=== PATIENT | female | born 2005 | race Caucasian/White ===

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

== ENCOUNTER 2024-10-22 07:59 | Emergency (ER) | payer MEDICAID, SELFPAY ==
[2024-10-22 08:00] VITALS: BP 120/77; PULSE 97; RESP 16; TEMP 36.7; O2SAT 99; BMI 33.8
[2024-10-22] MEDS: Ondansetron 4 MG/2 ML Vial IV (08:35)
[2024-10-22] MEDS: 0.9% Normal Saline (1000mL) 1,000 ML 200 ML IV (08:35)
[2024-10-22] MEDS: Morphine 4 MG/ML Syringe IV (08:36)
[2024-10-22] MEDS: Ketorolac 30 MG/ML Syringe IV (08:36)
--- NOTE | 2024-10-22 08:42 | ED.VIS.GI ---
HPI HPI - GI History of Present Illness Chief Complaint: Abd Pain Informant: patient and spouse/S.O. Narrative Narrative: 19-year-old female presenting with the third day of abdominal pain and vomiting. She states the abdominal pain started first and it was periumbilical, couple hours later she started having nausea and vomiting nonbilious nonbloody, she has been having normal bowel movements, normal urination, but states now the pain is moved to the right lower quadrant. She has had a poor appetite and p.o. intake, she has not had any fluids since last night but has been drinking fluids otherwise. No fevers or chills that she knows of. No known sick contacts. No history of any surgeries in her abdomen. She has irregular menstrual cycles, her last one was 1 or 2 months ago, she states that is not unusual for her, but given the symptoms they did a home test last night and it was negative. PFSH PFSH Medical History no medical history no medical history Home Medications ?Medication ?Instructions ?Recorded ?Last Taken ?Type ciprofloxacin HCl 500 mg tablet 500 mg PO BID #14 TABLETS 10/22/24 Unknown Rx promethazine 25 mg tablet 25 mg PO Q6H PRN PRN Nausea #10 10/22/24 Unknown Rx TABLETS Allergy/AdvReac Type Severity Reaction Status Date / Time No Known Allergies Allergy Verified 10/22/24 08:25 Surgical History (Updated 10/22/24 @ 08:[address] Christian Amaya MD) H/O left knee surgery H/O adenoidectomy Hx of tonsillectomy Social History Smoking Status: Current every day smoker tobacco type: e-cigarettes ROS ROS ED Constitutional Constitutional ED: Reports anorexia; Denies chills or fever(s) Eyes Eyes: Denies change in vision or diplopia ENT ENT ED: Denies rhinorrhea or sore throat Cardiovascular Cardiovascular: Denies chest pain or palpitations Respiratory/Chest Respiratory/Chest: Denies cough or dyspnea Gastrointestinal Gastrointestinal: Reports abdominal pain, nausea and vomiting; Denies diarrhea or melena Genitourinary Genitourinary ED: Denies dysuria or hematuria Musculoskeletal Musculoskeletal: Denies back pain or neck pain Integumentary Denies abscess or rash Neurologic Neurologic: Denies headache(s), paresthesias or weakness Psychiatric Psychiatric: Denies anxiety or suicidal thoughts EXAM Physical Exam Const Vital Signs: 10/22/24 08:00 10/22/24 10:00 Temperature 98.1 F Temperature Source Oral Pulse Rate 97 77 Respiratory Rate 16 16 Blood Pressure 120/77 96/60 Blood Pressure Mean 91 72 Pulse Ox 99 97 Oxygen Delivery Method Room Air Room Air Positive well nourished and well developed General Appearance ED: well developed and NAD HEENT Reports moist mucous membranes normocephalic and atraumatic Eyes PERRL and EOMs intact bilaterally Neck full ROM and supple Resp normal respiratory effort and clear to auscultation bilaterally Cardio regular rate, regular rhythm and no murmurs GI non-distended GI Narrative: Tender throughout the right lower quadrant with the maximal area of tenderness being at McBurney's point. Positive Rovsing, negative obturator, positive psoas. No rebound tenderness. Auscultation: normoactive bowel sounds Palpation: soft Back/Spine no CVA tenderness General Back: other FROM Extremity normal to inspection General Extremety ED: Negative for edema, pulses abnormal or tenderness General Extremity: Negative for edema or pulses abnormal Neuro oriented x3, CN's II-XII intact bilaterally and no sensory deficits noted Sensorium / Orientation: awake and alert Motor Exam: strength 5/5 throughout Psych mental status grossly normal and thought process normal Skin no rashes or lesions noted and no wounds MDM MDM MDM Narrative Medical decision making narrative: The history and exam are concerning for acute appendicitis. Ectopic and mesenteric adenitis and other GI issues such as terminal ileitis or other functional problems are all in the differential, but at this time a , basic labs, and a CT are indicated. In the meantime she was treated with IV fluids, Zofran, Toradol, morphine. These medications really help the patient did well remained stable. Labs are noted fairly unremarkable, urine showing signs of infection, and the CT shows normal appendix, signs of cystitis and ureteritis on the right, which is likely explaining her pain in context. I reviewed the images and report I agree with. Right is negative ruling out ectopic. I discussed these findings with Dr. Up, who agrees with treating her like an upper urinary tract infection and advises Cipro as an outpatient, I sent a culture and gave her Rocephin here, and she will follow-up with her as an outpatient. In speaking with the patient about this, she states she was treated for a urinary tract infection 2 weeks ago. She states she had some mild discomfort after urinating, and she did not seek care for but her grandmother gave her some pills to take which sounded like Azo, they made her urine orange, and she took nothing else. This was about 2 weeks ago. She states she did not have any urinary symptoms last couple days, but she did take an Azo about 24 hours ago, which was her last dose, because she was not sure if this was related or not. Initially when asked about urinary symptoms she said that she had none, and all of this came about after the workup. Therefore my suspicion is that she had cystitis that she did not treat and it is now becoming an upper tract infection. She is tolerating oral now, her is negative, and she is not septic so outpatient treatment appropriate. Lab Data Attestation: I reviewed the patient's lab results. Labs: Laboratory Results - last 24 hr 10/22/24 10/22/24 08:42 09:37 WBC 9.1 RBC 4.71 Hgb 14.0 Hct 41.1 MCV 87.3 MCH 29.7 MCHC 34.1 RDW Std Deviation 39.8 RDW Coeff of Wanda 12.7 Plt Count 245 MPV 8.9 Immature Gran % (Auto) 0.400 Neut % (Auto) 75.3 H Lymph % (Auto) 16.2 L [place] % (Auto) 7.4 Eos % (Auto) 0.6 Baso % (Auto) 0.1 Absolute Neuts (auto) 6.8 Absolute Lymphs (auto) 1.47 Nucleated RBC % 0 Sodium 139 Potassium 3.7 Chloride 103 Carbon Dioxide 24.7 Anion Gap 11 BUN 14 Creatinine 0.75 Estim Creat Clear Calc 115.62 Est GFR (MDRD) Non-Af 116 BUN/Creatinine Ratio 18.4 Glucose 98 Calcium 9.3 Total Bilirubin 0.53 AST 20 ALT 31 Alkaline Phosphatase 77 Total Protein 7.9 Albumin 4.3 Globulin 3.6 Albumin/Globulin Ratio 1.2 Serum , Qual NEGATIVE Urine Color Yellow Urine Clarity Cloudy Urine pH 6.0 Ur Specific [place] 1.015 Urine Protein TNP Urine Glucose (UA) Normal Urine Ketones Negative Urine Occult Blood 250 H Urine Nitrite Positive H Urine Bilirubin Negative Urine Urobilinogen Normal Ur Leukocyte Esterase 500 H Urine RBC 10-25 SEEN Urine WBC >100 SEEN Ur Squamous Epith Cells 10-25 SEEN Urine Bacteria 1+ Urine Mucus 0 SEEN U Random Total Protein 73.7 H Radiography Diagnostic Testing: Clinical Impression(s) from Imaging Studies Abdomen/Pelvis CT 10/22/24 10:02 IMPRESSION: Thickening and hyperenhancement of the right renal collecting system, ureter and bladder, compatible with cystitis and right ureteritis. No renal abscess visualized. Reading Location: [facility] Management Discussion w/another healthcare provider: Medical Case Manager (Urology Dr. Up) Discharge Plan Triage Chief Complaint: Abd Pain ED Provider: Christian Amaya Dx/Rx/DC Orders Clinical Impression: Ureteritis, Cystitis, Abdominal pain, RLQ Instructions: ED Pyelonephritis, Female (Adult) Prescriptions: New ciprofloxacin HCl 500 mg tablet 500 mg PO BID Qty: 14 0RF promethazine 25 mg tablet 25 mg PO Q6H PRN PRN (Reason: Nausea) Qty: 10 0RF Primary Care Provider: Care Physician,No Primary Referrals: Meli Up MD [Med Staff - Active Staff] - As soon as possible Print Language: Niuean Disposition Disposition: Home, Self Care
[2024-10-22 08:50] LABS: Absolute Lymphocyte Count 1.47 X10^3/uL (0.83-4.51); Absolute Neutrophil Count 6.8 X10^3/uL (2.0-7.7); Basophil# 0.01 X10^3/uL; Basophil% 0.1 % (0-1); Eosinophil# 0.05 X10^3/uL; Eosinophils% 0.6 % (0-5); Hematocrit 41.1 % (37-47); Lymphocyte # 1.47 X10^3/ul (0.83-4.51); Lymphocyte % 16.2 % (19-41); Mean Corp Hgb Conc 34.1 g/dL (32-36); Mean Corpuscular Hgb 29.7 pg (27.0-32.0); Mean Corpuscular Volume 87.3 fL (81-99); Mean Platelet Vol. 8.9 fl (6.2-12.0); Monocyte# 0.67 X10^3/uL; Monocyte% 7.4 % (0-10); NRBC Flagged by Analyzer 0 % (0-5); Neutrophil # 6.81 X10^3/uL (2.7-7.7); Neutrophil % 75.3 % (47-70); Platelet Count 245 K/mm3 (150-450); RBC Distribution Width CV 12.7 % (11.6-14.6); RBC Distribution Width SD 39.8 fl (35.1-43.9); Red Blood Count 4.71 M/mm3 (4.2-5.4); White Blood Count 9.1 K/mm3 (4.4-11.0)
[2024-10-22 09:40] LABS: Internal QC Validated? YES +Cl - CLEAR BKGD; Pregnancy, Serum, hCG Quali. NEGATIVE Negative
[2024-10-22 09:45] LABS: ALB/GLOB Ratio 1.2 RATIO (0.9-2.4); AST(SGOT) 20 U/L (<=31); Alanine Aminotransfer ALT/SGPT 31 U/L (<=34); Albumin, Serum 4.3 g/dL (3.5-5.0); Alkaline Phosphatase 77 U/L (35-104); Anion Gap 11 (5-15); BUN 14 mg/dL (4-19); BUN/Creat Ratio 18.4 RATIO (10-20); Calcium,Total 9.3 mg/dL (7.6-11.0); Carbon Dioxide 24.7 mmol/L (21.0-32.0); Chloride 103 mmol/L (98-108); Creatinine, Serum 0.75 mg/dL (0.70-1.20); EST Glomerular Filtration Rate 116 (>60); Estimated Creatinine Clearance 115.62 ml/min (50-250); Globulin 3.6 g/dL (2.2-4.2); Glucose 98 mg/dL (70-99); Potassium 3.7 mmol/L (3.3-5.1); Protein, Total 7.9 g/dL (5.9-8.4); Sodium Level 139 mmol/L (133-145); Total Bilirubin 0.53 mg/dL (0.00-1.30)
[2024-10-22 09:46] LABS: Mucous, Urine 0 SEEN /hpf (<or=2+)
[2024-10-22 09:59] LABS: Color, Urine Yellow (Yellow); Glucose, Dipstick Normal (Normal); Ketone-Dipstick Negative (Negative); Leukocyte Esterase-Dipstick 500 /ul (Negative); Nitrite-Dipstick Positive (Negative); Occult Blood-Urine 250 /ul (Negative); Specific Gravity, Urine 1.015 (1.002-1.030); Urine Bilirubin Dipstick Negative (Negative); Urine Clarity Cloudy (Clear); Urine Urobilinogen Normal (Normal)
[2024-10-22 10:00] VITALS: BP 96/60; PULSE 77; RESP 16; O2SAT 97
--- NOTE | 2024-10-22 10:02 | CT_ITS ---
PROCEDURE: ABDOMEN/PELVIS W IV CONT ONLY 10/22/2024 REASON FOR EXAM: RLQ PAIN TECHNIQUE: Abdomen and pelvis CT with intravenous contrast. Coronal and Sagittal reconstruction series were provided. PATIENT PREPARATION: Per protocol ORAL CONTRAST TYPE: None. CONTRAST: Isovue 370 VOLUME: 100 mL One or more dose reduction techniques were used (e.g., Automated exposure control, adjustment of the mA and/or kV according to patient size, use of iterative reconstruction technique. RADIATION DOSE SUMMARY: CTDlvol: 30 mGy DLP: 1200 mGycm COMPARISON: None FINDINGS: Lung bases: The lung bases are clear. The heart is normal in size. Liver: The liver is normal in size without focal hepatic mass. The major portal veins are patent. No biliary ductal dilation. Gallbladder: No radiopaque stones within the gallbladder. Spleen: Normal size. Pancreas: Unremarkable. Adrenals: No adrenal mass. Kidneys: No nephrolithiasis. Hyperenhancement of the right renal collecting system and ureter. Bladder: Minimally distended with diffuse bladder wall thickening and enhancement. Reproductive Organs: The uterus is unremarkable. Right corpus luteum. Bowel: The bowel loops are normal in caliber. No ascites or pneumoperitoneum. Normal appendix. Lymph nodes: No suspicious lymphadenopathy. Vasculature: The abdominal aorta and IVC are normal. Bones: Mild leftward curvature of the lumbar spine. No aggressive osseous lesions. CT/Abdomen/Pelvis W IV Cont ONLY IMPRESSION: Thickening and hyperenhancement of the right renal collecting system, ureter an d bladder, compatible with cystitis and right ureteritis. No renal abscess visualized. Reading Location: [id number]
[2024-10-22 10:11] LABS: White Blood Cells >100 SEEN /hpf (0-5)
[2024-10-22 10:12] LABS: Red Blood Cells-Urine 10-25 SEEN /hpf (0-5)
[2024-10-22 10:13] LABS: Bacteria 1+ /hpf (None Seen); Squamous Epithelial Cells - UA 10-25 SEEN /hpf (5-10)
[2024-10-22 10:36] LABS: Protein, Urine (Random) 73.7 mg/dL (0.0-12.0)
[2024-10-22] MEDS: Ceftriaxone 1 GM/50 ML BAG IV (11:01)
[2024-10-22 11:43] VITALS: BP 93/57; PULSE 78; RESP 16; TEMP 36.5; O2SAT 99
== END 2024-10-22 12:02 | disposition home or self-care (01) ==
PROVIDERS: Emergency Provider Emergency Medicine; Visit Provider Emergency Medicine
DX: R10.31 Right lower quadrant pain (principal); N28.89 Other specified disorders of kidney and ureter; N30.90 Cystitis, unspecified without hematuria; F17.290 Nicotine dependence, other tobacco product, uncomplicated; R11.10 Vomiting, unspecified
CPT/HCPCS: 36415; 74177; 80053; 81001; 84156; 84703; 85025; 87086; 87088; 87186; 96361; 96365; 96375; 99283; Q9967; A4216; J2405

== ENCOUNTER 2025-06-27 10:27 | Emergency (ER) | payer SELFPAY ==
[2025-06-27 10:28] VITALS: BP 132/81; PULSE 98; RESP 16; TEMP 36.8; O2SAT 99; BMI 38.8
--- NOTE | 2025-06-27 10:41 | ED.VIS.GI ---
HPI HPI - GI History of Present Illness Chief Complaint: Abd Pain Informant: patient Abdominal Pain/Flank Pain Onset: Weeks Context: Gradual Onset Timing: Intermittent Quality: Cramping Location: Diffuse Current Severity: Mild Maximum Severity: Mild Worsened by: Nothing Relieved by: Nothing Nausea/Vomiting/Emesis GI Symptom: Positive for Nausea and Vomiting Onset: Weeks Severity: Mild Diarrhea/Melena/Hematochezia GI Symptom: Negative for Diarrhea, Melena or Hematochezia Associated Symptoms Associated Symptoms: Negative for Dysuria, Frequency, Hematuria or Urgency Narrative Narrative: 20-year-old female no past medical or surgical history. No prior abdominal surgeries. States of the last month or so she has had diffuse abdominal cramping. Nausea and vomiting. No diarrhea. No fever. No dysuria. Her menstrual period is late by 1 month. But she has had test at home which have all been negative. States she has had a 10 pound weight gain over the last year no weight loss. Prior similar symptoms: Yes Recent Illness/Hospitalization: No PFSH PFSH Medical History no medical history no medical history Home Medications ?Medication ?Instructions ?Recorded ?Last Taken ?Type ciprofloxacin HCl 500 mg tablet 500 mg PO BID #14 TABLETS 10/22/24 Unknown Rx promethazine 25 mg tablet 25 mg PO Q6H PRN PRN Nausea #10 10/22/24 Unknown Rx TABLETS sulfamethoxazole 800 1 tab PO BID 5 days #10 tabs 06/27/25 Unknown Rx mg-trimethoprim 160 mg tablet (Bactrim DS) Allergy/AdvReac Type Severity Reaction Status Date / Time No Known Allergies Allergy Verified 06/27/25 10:30 Surgical History H/O left knee surgery H/O adenoidectomy Hx of tonsillectomy Social History Smoking Status: Current every day smoker tobacco type: e-cigarettes ROS ROS ED ROS Narrative Nausea and vomiting. Constitutional Constitutional ED: Denies chills or fever(s) ENT ENT ED: Denies ear pain Cardiovascular Cardiovascular: Denies chest pain Respiratory/Chest Respiratory/Chest: Denies cough or dyspnea Gastrointestinal Gastrointestinal: Reports abdominal pain, nausea and vomiting; Denies constipation, diarrhea or melena Genitourinary Genitourinary ED: Denies dysuria or hematuria Musculoskeletal Musculoskeletal: Denies arthralgias Integumentary Denies abscess or Abrasions Neurologic Neurologic: Denies headache(s) Psychiatric Psychiatric: Denies anxiety or depression Endocrine Endocrinology: Denies polydipsia, polyphagia or polyuria Hematologic/Lymphatic Hematologic/Lymphatic: Denies easy bleeding, easy bruising or lymphadenopathy Allergic/Immunologic Allergic/Immunologic ED: Denies mouth swelling, tongue swelling or urticaria EXAM Physical Exam Narrative Exam Narrative: 20-year-old female sitting upright in bed. Vital signs are stable afebrile. Absolutely no distress. Smiling. H EENT exam pupils round react to light. Moist mucous membranes. Neck nontender no lymphadenopathy. Back nontender. Lungs clear to auscultation bilaterally. Heart regular rhythm rate in the 90s no murmur. Chest wall ribs nontender. Abdomen soft, nontender, nondistended, normal bowel sounds without peritoneal signs. No guarding or mass. No distention. No localizing tenderness. Both right upper and right lower quadrants are nontender. Moving all 4 extremities. Nontender no edema normal strength. Neurologically awake alert. Answering questions following commands. Const Vital Signs: 06/27/25 10:28 Temperature 98.2 F Temperature Source Oral Pulse Rate 98 Respiratory Rate 16 Blood Pressure 132/81 H Blood Pressure Mean 98 Pulse Ox 99 Oxygen Delivery Method Room Air MDM MDM MDM Narrative Medical decision making narrative: 20-year-old with GI complaints. Benign exam. I do not think she needs any imaging. Screening labs with a UA and serum test. If it is negative she will be discharged home. She has had symptoms for a month. Has had no weight loss. Abdomen is completely benign and nontender. Repeat exam patient is doing well. She will be started on Bactrim for UTI urine culture will be sent. They are comfortable with the plan. She has no primary care physician and she will be referred to primary care and OB as needed if her menstrual cycles does not restart. History & Record Review Discussion w/independent historian: Patient and Family Additional record(s) reviewed:: Prior outpatient record, Prior ED visit and Prior labs Lab Data Attestation: I reviewed the patient's lab results. Lab results narrative: CBC shows white count of 6.8. H&H 13 and 40. Platelets 268. CMP is unremarkable. Normal sodium. Normal anion gap at 9. BUN and creatinine are normal. Glucose 89. Liver enzymes normal. Serum test negative. Urinalysis shows greater than 100 white cells. No nitrites. 1+ bacteria. Culture will be sent. Labs: Laboratory Results - last 24 hr 06/27/25 10:47 WBC 6.8 RBC 4.68 Hgb 13.9 Hct 40.6 MCV 86.8 MCH 29.7 MCHC 34.2 RDW Std Deviation 40.6 RDW Coeff of Wanda 13.0 Plt Count 268 MPV 8.8 Immature Gran % (Auto) 0.300 Neut % (Auto) 62.9 Lymph % (Auto) 28.2 [place] % (Auto) 6.6 Eos % (Auto) 1.9 Baso % (Auto) 0.1 Absolute Neuts (auto) 4.3 Absolute Lymphs (auto) 1.91 Nucleated RBC % 0 Sodium 139 Potassium 3.9 Chloride 105 Carbon Dioxide 24.6 Anion Gap 9 BUN 15 Creatinine 0.76 Estim Creat Clear Calc 121.94 Est GFR (MDRD) Non-Af 115 BUN/Creatinine Ratio 19.8 Glucose 89 Calcium 9.5 Total Bilirubin 0.34 AST 16 ALT 15 Alkaline Phosphatase 83 Total Protein 7.5 Albumin 4.5 Globulin 3.0 Albumin/Globulin Ratio 1.5 Serum , Qual NEGATIVE Urine Color Yellow Urine Clarity Cloudy Urine pH 6.0 Ur Specific [place] 1.025 Urine Protein 100 H Urine Glucose (UA) Normal Urine Ketones Negative Urine Occult Blood 150 H Urine Nitrite Negative Urine Bilirubin Negative Urine Urobilinogen Normal Ur Leukocyte Esterase 500 H Urine RBC 0 SEEN Urine WBC >100 SEEN Ur Squamous Epith Cells 0-5 SEEN Urine Bacteria 1+ Urine Mucus 0 SEEN Discharge Plan Triage Chief Complaint: Abd Pain ED Provider: David Corona Dx/Rx/DC Orders Clinical Impression: Abdominal pain, Abnormal menstrual periods Instructions: Abdominal Pain Prescriptions: New sulfamethoxazole-trimethoprim [Bactrim DS] 800-160 mg tablet 1 tab PO BID 5 Days Qty: 10 0RF No Action ciprofloxacin HCl 500 mg tablet 500 mg PO BID Qty: 14 0RF promethazine 25 mg tablet 25 mg PO Q6H PRN PRN (Reason: Nausea) Qty: 10 0RF Primary Care Provider: Care Physician,No Primary Referrals: Rudy Gan MD [Med Staff - [facility]] - As Needed Vande Velde,Lucia, DO [Med Staff - Active Staff, Obstetrics-Gynecology (OBGYN)] - As Needed Referral Note: Follow-up [facility] if your menstrual periods do not restart. Care Physician,No Primary [Primary Care Provider, Medical] Activity Restrictions/Additional Instructions: Your menstrual cycle should restart if it does not you can always follow-up with an [facility]. Your blood work looks good. Your test negative. Urine looks like it is infected. Will start on antibiotic Bactrim 1 pill twice a day for 5 days. Follow-up with local primary care physician as needed. Print Language: Bhutanese Disposition Disposition: Home, Self Care
[2025-06-27 10:55] LABS: Mucous, Urine 0 SEEN /hpf (<or=2+); Red Blood Cells-Urine 0 SEEN /hpf (0-5)
[2025-06-27 11:00] LABS: Hematocrit 40.6 % (37-47); Hemoglobin 13.9 g/dL (12.0-15.0); Immature Granulocytes Count 0.020 X10^3/uL (0.0-0.0); Mean Corp Hgb Conc 34.2 g/dL (32-36); Mean Corpuscular Volume 86.8 fL (81-99); Mean Platelet Vol. 8.8 fl (6.2-12.0); NRBC Flagged by Analyzer 0 % (0-5); Platelet Count 268 K/mm3 (150-450); RBC Distribution Width CV 13.0 % (11.6-14.6); RBC Distribution Width SD 40.6 fl (35.1-43.9); Red Blood Count 4.68 M/mm3 (4.2-5.4); White Blood Count 6.8 K/mm3 (4.4-11.0)
[2025-06-27 11:02] LABS: Color, Urine Yellow (Yellow); Glucose, Dipstick Normal (Normal); Ketone-Dipstick Negative (Negative); Leukocyte Esterase-Dipstick 500 /ul (Negative); Nitrite-Dipstick Negative (Negative); Occult Blood-Urine 150 /ul (Negative); Protein-Dipstick 100 mg/dl (Negative); Specific Gravity, Urine 1.025 (1.002-1.030); Urine Bilirubin Dipstick Negative (Negative)
[2025-06-27 11:08] LABS: Internal QC Validated? YES +Cl - CLEAR BKGD; Pregnancy, Serum, hCG Quali. NEGATIVE Negative
[2025-06-27 11:11] LABS: Squamous Epithelial Cells - UA 0-5 SEEN /hpf (5-10)
[2025-06-27 11:18] LABS: AST(SGOT) 16 U/L (<=31); Alanine Aminotransfer ALT/SGPT 15 U/L (<=34); Albumin, Serum 4.5 g/dL (3.5-5.0); Alkaline Phosphatase 83 U/L (35-104); Anion Gap 9 (7-18); BUN 15 mg/dL (4-19); BUN/Creat Ratio 19.8 RATIO (10-20); Calcium,Total 9.5 mg/dL (7.6-11.0); Carbon Dioxide 24.6 mmol/L (20.0-29.0); Chloride 105 mmol/L (96-106); Estimated Creatinine Clearance 121.94 ml/min (50-250); Globulin 3.0 g/dL (2.2-4.2); Glucose 89 mg/dL (70-99); Potassium 3.9 mmol/L (3.5-5.1)
--- OUTSIDE RECORDS SUMMARY | 2025-06-27 11:35 | XMS RPT_ITS | CCD ---
Author Organization [facility] Inform ion Partnership [facility] Care Team Providers Care Caustic Operator Name Role Phone LAWANDA PANTOJA Unavailable Unavailable CHARI JOSE L Unavailable Unavailable Ruben MCADAMS Unavailable Unavailable CHARI JOSE L Unavailable Unavailable DEVON BARAHONA Admitting Unavailable DEVON BARAHONA Attending Unavailable PROVIDER, UNKNOWN Attending Unavailable PROVIDER, UNKNOWN Admitting Unavailable YULISSA LEMUS Attending Unavailable PROVIDER, UNKNOWN Admitting Unavailable Naty COLLINS, Ronald Unavailable [phone] Kenya Murguia I. Unavailable [phone] Juhi Beatty MD Unavailable Jose Moran Primary Care Provider PARVIN VOGEL Attending Unavailable PARVIN VOGEL Primary Care Unavailable PARVIN VOGEL Primary Care Unavailable Jaspreet FAM-Parvin VARELA Primary Care Provider Jose Luis COLLINS, Dr. Gonzales Emergency Provider Care Physician, No Primary Primary Care Provider Unavailable Christian Amaya Attending Unavailable Care Physician, No Primary Primary Care Unava ilable Medications Current Medications Medication Drug Class(es) Dates Sig (Normalized) Sig (Original) 24 hr amphetamine aspartate 7.5 mg / amphetamine sulfate 7.5 mg / dextroamphetamine saccharate 7.5 mg / dextroamphetamine sulfate 7.5 mg extended release oral capsule (2 sources) Central Nervous System Stimulant Start: 12-17-2018 take 1 capsule by mouth once daily in the morning amphetamine-dext roamphetamine (ADDERALL XR) 30 MG XR capsule TAKE 1 CAPSULE BY MOUTH EVERY MORNING FOR ADHD F90.2 0 12/17/2018 Active take 1 tablet by delio th once daily dextroamphetamine-amphetamine (ADDERALL) 20 mg tablet Take 20 mg by mouth once daily. 0 Active Comment on above: Take 20 mg by mouth once daily. atomoxetine 80 mg oral capsule (1 source) Norepinephrine Reuptake Inhibitor Start: take 1 capsule by mouth once daily in the morning atomoxetine (STRATTERA) 80 MG capsule TAKE 1 CAPSULE BY MOUTH EVERY DAY IN THE MORNING 0 07/02/2020 Active ciprofloxacin 500 mg oral tablet (1 source) Quinolone Antimicrobial Start: take 1 tablet by mouth twice daily Ciprofloxacin Hcl 500 mg tablet Active 500 mg PO TWICE A DAY October 22, 2024 12:00am cloNIDine hydrochloride 0.1 mg oral tablet (1 source) Central alpha-2 Adrenergic Agonist Start: take 1 tablet by mouth once daily at bedtime cloNIDine (CATAPRES) 0.1 MG tablet TAKE 1 TABLET BY MOUTH EVERYDAY AT BEDTIME 0 07/02/2020 Active escitalopram 10 mg oral tablet (2 sources) Serotonin Reuptake Inhibitor Start: End: take 1 tablet by mouth once daily escitalopram (LEXAPRO) 10 MG tablet TAKE 1 TABLET BY MOUTH EVERY DAY 30 Tablet 3 10/07/2018 Active Comment on above: Take 10 mg by mouth once daily. ondansetron 4 mg disintegrating oral tablet (2 sources) Serotonin-3 Receptor Antagonist Start: take 1 tablet by mouth every eight hours as needed ondansetron orally disintegrating (ZOFRAN ODT) 4 mg disintegrating tablet Take 1 tablet by mouth every 8 hours as needed for nausea/vomiting. 4 tablet 0 10/17/2021 Active Start: 08-27-2018 take 1 tablet by delio th three times daily as needed for nausea ondansetron (ZOFRAN) 4 mg tablet Indications: prevention of post-operative nausea and vomiting , POST OP NAUSEA WHEN USING NARCOTICS FOR PAIN Take 1 tablet by mouth three times daily as needed for Nausea/Vomiting. 40 tablet 0 08/27/2018 Active Comment on above: Take 1 tablet by delio th every 8 hours as needed for nausea/vomiting. Take 1 tablet by delio th three times daily as needed for Nausea/Vomiting. promethazine hydrochloride 25 mg oral tablet (1 source) Phenothiazine Start: 10-23-19 take 1 tablet by mouth every six hours as needed for nausea Promethazine 25 mg tablet Active 25 mg PO EVERY 6 HOURS NEEDED as needed for Nausea October 22, 2024 12:00am Completed/Discontinued Medications Medication Drug Class(es) Dates Sig (Normalized) Sig (Original) lisdexamfetamine dimesylate 50 mg oral capsule (1 source) Central Nervous System Stimulant take 50 mg by mouth once daily lisdexamfetamine dimesylate (VYVANSE ORAL) Take 50 mg by mouth once daily. 0 Active Comment on above: Take 50 mg by mouth once daily. Problems Active Problems Problem Classification Problem Date Documented Date Episodic/Chronic Abdominal pain (2 sources) Right lower quadrant pain; Translations: [Right lower quadrant pain] Onset: 10-27-2024 10-22-2024 Episodic Adjustment disorders (1 source) Depressive disorder; Translations: [Adjustment disorder, unspecified] Onset: 01-28-2019 01-28-2019 Chronic Administrative/social admission (3 sources) Encounter for other administrative examinations; Translations: [Patient encounter status] Onset: 03-27-2024 Episodic Anxiety disorders (4 sources) Anxiety; Translations: [Anxiety disorder, unspecified] Onset: 01-06-2016 08-18-2021 Chronic Attention-deficit, conduct, and disruptive behavior disorders (3 sources) Attention deficit hyperactivity disorder; Translations: [Attention-deficit hyperactivity disorder, unspecified type] Onset: 08-19-2018 01-28-2019 Chronic Attention-deficit, conduct, and disruptive behavior disorders (1 source) Behavior showing increased motor activity; Translations: [Attention-deficit hyperactivity disorder, unspecified type] Onset: 01-28-2019 01-28-2019 Chronic Fever of unknown origin (1 source) Fever; Translations: [Fever, unspecified] Episodic Joint disorders and dislocations; trauma-related (1 source) Loose body in knee, left knee; Translations: [Loose body in knee, left knee] Onset: 08-27-2018 Chronic Joint disorders and dislocations; trauma-related (1 source) Unspecified dislocation of left patella, initial encounter; Translations: [Unspecified dislocation of left patella, initial encounter] Onset: 08-27-2018 Episodic Nausea and vomiting (1 source) Nausea and vomiting; Translations: [Nausea with vomiting, unspecified] Episodic Other acquired deformities (1 source) Thoracogenic scoliosis; Translations: [Thoracogenic scoliosis, thoracolumbar region] Onset: 01-13-2017 01-13-2017 Chronic Other diseases of kidney and ureters (1 source) Ureteritis; Translations: [Other specified disorders of kidney and ureter] 10-22-2024 Chronic Other lower respiratory disease (1 source) Cough; Translations: [Cough] Episodic Other nervous system disorders (2 sources) Walking difficulty due to lower leg; Translations: [Difficulty in walking, not elsewhere classified] Onset: 09-17-2018 01-28-2019 Chronic Other upper respiratory disease (1 source) Allergy to pollen; Translations: [Allergic rhinitis due to pollen] Onset: 01-28-2019 01-28-2019 Chronic Residual codes; unclassified (1 source) Influenza-like symptoms; Translations: [Other general symptoms and signs] Episodic Unclassified (2 sources) Establish Care; Translations: [Establish Care] Onset: 03-12-2024 Unclassified (2 sources) Employment Physical; Translations: [Employment Physical] Onset: 03-12-2024 Urinary tract infections (1 source) Cystitis; Translations: [Cystitis, unspecified without hematuria] 10-22-2024 Episodic Past or Other Problems Problem Classification Problem Date Documented Da te Episodic/Chronic Fracture of upper limb (2 sources) Fracture of metacarpal bone; Translations: [Unspecified fracture of unspecified metacarpal bone, initial encounter for closed fracture] Onset: 11-15-2010 01-28-2019 Episodic Genitourinary symptoms and ill-defined conditions (2 sources) History of recurrent urinary tract infection; Translations: [Personal history of urinary (tract) infections] Onset: 09-13-2011 01-28-2019 Episodic Inflammation; infection of eye (except that caused by tuberculosis or sexually transmitteddisease) (1 source) Conjunctivitis; Translations: [Unspecified conjunctivitis] Onset: 11-30-2017 Resolved: 02-15-2019 02-15-2019 Episodic Other connective tissue disease (2 sources) Muscle weakness of limb; Translations: [Muscle weakness (generalized)] Onset: 09-17-2018 01-28-2019 Episodic Other gastrointestinal disorders (1 source) Abnormal digestive tract function; Translations: [Functional intestinal disorder, unspecified] Onset: 01-28-2019 01-28-2019 Episodic Other gastrointestinal disorders (1 source) Encopresis ; Translations: [Full incontinence of feces] Onset: 09-12-2011 01-28-2019 Episodic Other gastrointestinal disorders (1 source) Constipation; Translations: [Constipation, unspecified] Onset: 01-28-2019 Resolved: 02-15-2019 02-15-2019 Episodic Other gastrointestinal disorders (1 source) Full incontinence of feces; Translations: [Encopresis] Onset: 09-12-2011 09-12-2011 Episodic Other non-traumatic joint disorders (2 sources) Pain in left knee; Translations: [Pain in joint, lower leg] Onset: 09-17-2018 01-28-2019 Episodic Other non-traumatic joint disorders (2 sources) Instability of left patellofemoral joint; Translations: [Other instability, left knee] Onset: 08-26-2018 01-28-2019 Episodic Other upper respiratory infections (1 source) Pharyngitis; Translations: [Acute pharyngitis, unspecified] Onset: 01-28-2019 Resolved: 02-15-2019 02-15-2019 Episodic Otitis media and related conditions (1 source) Otitis media; Translations: [Otitis media, unspecified, unspecified ear] Onset: 01-28-2019 Resolved: 02-15-2019 02-15-2019 Episodic Residual codes; unclassified (2 sources) H/O: fracture; Translations: [Other specified postprocedural states] Onset: 09-17-2018 01-28-2019 Episodic Residual codes; unclassified (1 source) Self-mutilation; Translations: [Other problems related to lifestyle] Onset: 01-06-2016 Resolved: 04-28-2018 04-28-2018 Episodic Results Test Name Value Interpretation Reference Range Facility Urine Cultureon 10-24-2024 [facility] CLEAN CATCH Presumptive E. coli [place] Count 80,000-100,000 Presumptive E. coli: REACTION Ampicillin Islt LISA 8 Ampicillin+Sulbac Islt LISA <=2 S Cefepime Islt LISA <=0.12 S cefTRIAXone Islt LISA <=0.25 S Ciprofloxacin Islt LISA <=0.06 S B-Lactamase Extended Susc Islt NEG Gentamicin Islt LISA <=1 S levoFLOXacin Islt LISA <=0.12 S Meropenem Islt LISA <=0.25 S Pip+Tazo Islt LISA <=4 S TMP SMX Islt LISA <=[address] [facility] Comment on above: Performed By: #### M 100.220 #### [facility] [address] [place], [address] Abdomen/Pelvis W IV Cont ONL Yon 10-22-2024 Abdomen/Pelvis W IV Cont ONLY [facility] [address] [place] [address] Abdomen/Pelvis W IV Cont ONLY MR#: [id number] Acct: [id number] Name: MYRTLE RICE Rep #: [id number] : 2005 F 19 From: Danica Nunez nd, MD PCP: Care Physician,No Primary Status: REG ER Study: Abdomen/Pelvis W IV Cont ONLY Date of Exam: Exam# [id number] Ordering Dr: Christian Amaya MD PROCEDURE: ABDOMEN/PELVIS W IV CONT ONLY 10/22/2024 REASON FOR EXAM: RLQ PAIN TECHNIQUE: Abdomen and pelvis CT with intravenous contrast. Coronal and Sagittal reconstruction series were provided. PATIENT PREPARATION: Per protocol ORAL CONTRAST TYPE: None. CONTRAST: Isovue 370 VOLUME: 100 mL One or more dose reduction techniques were used (e.g., Automated exposure control, adjustment of the mA and/or kV according to patient size, use of iterative reconstruction technique. RADIATION DOSE SUMMARY: CTDlvol: 30 mGy DLP: 1200 mGycm COMPARISON: None FINDINGS: Lung bases: The lung bases are clear. The heart is normal in size. Liver: The liver is normal in size without focal hepatic mass. The major portal veins are patent. No biliary ductal dilation. Gallbladder: No radiopaque stones within the gallbladder. Spleen: Normal size. Pancreas: Unremarkable. Adrenals: No adrenal mass. Kidneys: No nephrolithiasis. Hyperenhancement of the right renal collecting system and ureter. Bladder: Minimally distended with diffuse bladder wall thickening and enhancement. Reproductive Organs: The uterus is unremarkable. Right corpus luteum. Bowel: The bowel loops are normal in caliber. No ascites or pneumoperitoneum. Normal appendix. Lymph nodes: No suspicious lymphadenopathy. Vasculature: The abdominal aorta and IVC are normal. Bones: Mild leftward curvature of the lumbar spine. No aggressive osseous lesions. CT/Abdomen/Pelvis W IV Cont ONLY IMPRESSION: Thickening and hyperenhancement of the right renal collecting system, ureter and bladder, compatible with cystitis and right ureteritis. No renal abscess visualized. Reading Location: [facility] CC: Dr. Christian Amaya MD; No Primary Care Physician Carton Marker Machine: Signed Normal [facility] Absolute neutrophil countOrd ered By: Christian Amaya on 10-22-2024 Neutrophils (Bld) [#/Vol] 6.8 10*3/uL 2.0-7.7 [facility] Anion gap in Serum or Plasma Ordered By: Christian Amaya on 10-22-2024 Anion gap [Moles/Vol] 11 mmol/L 5-15 [facility] BUN/creatinine ratioOrdered By: Christian Amaya on 10-22-2024 Urea nitrogen/Creatinine [Mass ratio] 18.4 mg/mg 10-20 [facility] Basophil percentageOrdered B y: Christian Amaya on 10-22-2024 Basophils/100 WBC (Bld) 0.1 % 0-1 [facility] Beta HCG ( test) Ql Ordered By: Christian Amaya on 10-22-2024 Serum Test, Qualitative Negative [facility] Bilirubin Test strip Ql (U)O rdered By: Christian Amaya on 10-22-2024 Bilirubin Ql (U) Negative Negative [facility] Bilirubin, totalOrdered By: Christian Amaya on 10-22-2024 Bilirubin [Mass/Vol] 0.53 mg/dL 0.00-1.30 [facility] CBC W/Diff, Automatedon 10-01 Absolute Lymph 1.47 X10 3/uL Normal 0.83-4.51 [facility] Comment on above: Performed By: #### L 700.6800, L100.0100, L500.4050 #### [facility] [address] [facility]. [place], [place], [id number] Absolute Neut 6.8 X10 3/uL Normal 2.0-7.7 [facility] Comment on above: Performed By: #### L 700.6800, L100.0100, L500.4050 #### [facility] [address] [place], [address] Basophils/100 WBC (Bld) 0.1 % Normal 0-1 [facility] Comment on above: Performed By: #### L 700.6800, L100.0100, L500.4050 #### [facility] [address] [place], [address] Eosinophils/100 WBC (Bld) 0.6 % Normal 0-5 [facility] Comment on above: Performed By: #### L 700.6800, L100.0100, L500.4050 #### [facility] [address] [place], [address] Erythrocyte distribution width (RBC) [Ratio] 12.7 % Normal 11.6-14.6 [facility] Comment on above: Performed By: #### L 700.6800, L100.0100, L500.4050 #### [facility] [address] [place], [address] Hematocrit (Bld) [Volume fraction] 41.1 % Normal 37-47 [facility] Comment on above: Performed By: #### L 700.6800, L100.0100, L500.4050 #### [facility] [address] [place], [address] Hemoglobin (Bld) [Mass/Vol] 14.0 g/dL Normal 12.0-15.0 [facility] Comment on above: Performed By: #### L 700.6800, L100.0100, L500.4050 #### [facility] [address] [place], [address] IG% 0.400 Normal 0.0-0.9 [facility] Comment on above: Result Comment: IG% - Immature Granulocytes (promyelocytes, myelocytes and metamyelocytes) > 1% indicates that a LEFT SHIFT is Present. Performed By: #### L 700.6800, L100.0100, L500.4050 #### [facility] [address] [place], [address] Lymphocytes/100 WBC (Bld) 16.2 % Low 19-41 [facility] Comment on above: Performed By: #### L 700.6800, L100.0100, L500.4050 #### [facility] [address] [place], [address] MCH (RBC) [Entitic mass] 29.7 pg Normal 27.0-32.0 [facility] Comment on above: Performed By: #### L 700.6800, L100.0100, L500.4050 #### [facility] [address] [place], [address] MCHC (RBC) [Mass/Vol] 34.1 g/dL Normal 32-36 [facility] Comment on above: Performed By: #### L 700.6800, L100.0100, L500.4050 #### [facility] [address] [place], [address] MCV (RBC) [Entitic vol] 87.3 fL Normal 81-99 [facility] Comment on above: Performed By: #### L 700.6800, L100.0100, L500.4050 #### [facility] [address] [place], [address] Monocytes/100 WBC (Bld) 7.4 % Normal 0-10 [facility] Comment on above: Performed By: #### L 700.6800, L100.0100, L500.4050 #### [facility] [address] [place], [address] Neutrophils/100 WBC (Bld) 75.3 % High 47-70 [facility] Comment on above: Performed By: #### L 700.6800, L100.0100, L500.4050 #### [facility] [address] [place], [address] Nucleated RBC (Bld) [#/Vol] 0 10*3/uL Normal 0-5 [facility] Comment on above: Performed By: #### L 700.6800, L100.0100, L500.4050 #### [facility] [address] [place], [address] Platelet mean volume (Bld) [Entitic vol] 8.9 fL Normal 6.2-12.0 [facility] Comment on above: Performed By: #### L 700.6800, L100.0100, L500.4050 #### [facility] [address] [place], [address] Platelets (Bld) [#/Vol] 245 10*3/uL Normal 150-450 [facility] Comment on above: Performed By: #### L 700.6800, L100.0100, L500.4050 #### [facility] [address] [place], [address] RBC (Bld) [#/Vol] 4.71 10*6/uL Normal 4.2-5.4 [facility] Comment on above: Performed By: #### L 700.6800, L100.0100, L500.4050 #### [facility] [address] [place], [address] RDW SD 39.8 fl Normal 35.1-43.9 [facility] Comment on above: Performed By: #### L 700.6800, L100.0100, L500.4050 #### [facility] [address] [place], [address] WBC (Bld) [#/Vol] 9.1 10*3/uL Normal 4.4-11.0 [facility] Comment on above: Performed By: #### L 700.6800, L100.0100, L500.4050 #### [facility] [address] [place], [address] Carbon dioxide, total [Moles /volume] in Central venous bloodOrdered By: Christian Amaya on 10-22-2024 CO2 [Moles/Vol] 24.7 mmol/L 21.0-32.0 [facility] Chloride assayOrdered By: Leslee Amaya on 10-22-2024 Chloride [Moles/Vol] 103 mmol/L 98-108 [facility] Comprehensive Metabolic Prof ilon 10-22-2024 Albumin [Mass/Vol] 4.3 g/dL Normal 3.5-5.0 [facility] Comment on above: Performed By: #### L 700.6800, L100.0100, L500.4050 #### [facility] [address] [place], [address] Albumin/Globulin [Mass ratio] 1.2 {ratio} Normal 0.9-2.4 [facility] Comment on above: Performed By: #### L 700.6800, L100.0100, L500.4050 #### [facility] [address] [place], [address] ALK PHOS 77 U/L Normal 35-104 [facility] Comment on above: Performed By: #### L 700.6800, L100.0100, L500.4050 #### [facility] [address] [place], [address] ALT [Catalytic activity/Vol] 31 U/L Normal <=34 [facility] Comment on above: Performed By: #### L 700.6800, L100.0100, L500.4050 #### [facility] [address] [place], [address] AST [Catalytic activity/Vol] 20 U/L Normal <=31 [facility] Comment on above: Performed By: #### L 700.6800, L100.0100, L500.4050 #### [facility] [address] [place], [address] Bilirubin [Mass/Vol] 0.53 mg/dL Normal 0.00-1.30 [facility] Comment on above: Performed By: #### L 700.6800, L100.0100, L500.4050 #### [facility] [address] [place], [address] BUN/CRE 18.4 RATIO Normal 10-20 [facility] Comment on above: Performed By: #### L 700.6800, L100.0100, L500.4050 #### [facility] [address] [place], [address] Calcium [Mass/Vol] 9.3 mg/dL Normal 7.6-11.0 [facility] Comment on above: Performed By: #### L 700.6800, L100.0100, L500.4050 #### [facility] [address] [place], [address] Chloride [Moles/Vol] 103 mmol/L Normal 98-108 [facility] Comment on above: Performed By: #### L 700.6800, L100.0100, L500.4050 #### [facility] [address] [place], [address] CO2 [Moles/Vol] 24.7 mmol/L Normal 21.0-32.0 [facility] Comment on above: Performed By: #### L 700.6800, L100.0100, L500.4050 #### [facility] [address] [place], [address] Creatinine [Mass/Vol] 0.75 mg/dL Normal 0.70-1.20 [facility] Comment on above: Performed By: #### L 700.6800, L100.0100, L500.4050 #### [facility] [address] [place], [address] ECRCL 115.62 ml/min Normal 50-250 [facility] Comment on above: Performed By: #### L 700.6800, L100.0100, L500.4050 #### [facility] [address] [place], [address] GAP 11 Normal 5-15 [facility] Comment on above: Performed By: #### L 700.6800, L100.0100, L500.4050 #### [facility] [address] [place], [address] GFR/1.73 sq M.predicted among non-blacks MDRD (S/P/Bld) [Vol rate/Area] 116 mL/min/{1.73_m2} Normal >60 [facility] Comment on above: Result Comment: mL/m in/1.73m2 CKD-EPI Creatinine Equation (2020) Performed By: #### L 700.6800, L100.0100, L500.4050 #### [facility] [address] [place], [address] Globulin (S) [Mass/Vol] 3.6 g/dL Normal 2.2-4.2 [facility] Comment on above: Performed By: #### L 700.6800, L100.0100, L500.4050 #### [facility] [address] [place], [address] Glucose [Mass/Vol] 98 mg/dL Normal 70-99 [facility] Comment on above: Performed By: #### L 700.6800, L100.0100, L500.4050 #### [facility] [address] [place], [address] Potassium [Moles/Vol] 3.7 mmol/L Normal 3.3-5.1 [facility] Comment on above: Performed By: #### L 700.6800, L100.0100, L500.4050 #### [facility] [address] [place], [address] Sodium [Moles/Vol] 139 mmol/L Normal 133-145 [facility] Comment on above: Performed By: #### L 700.6800, L100.0100, L500.4050 #### [facility] [address] [place], [address] T PROT 7.9 g/dL Normal 5.9-8.4 [facility] Comment on above: Performed By: #### L 700.6800, L100.0100, L500.4050 #### [facility] [address] [place], [address] Urea nitrogen [Mass/Vol] 14 mg/dL Normal 4-19 [facility] Comment on above: Performed By: #### L 700.6800, L100.0100, L500.4050 #### [facility] [address] [place], [address] Emergency Department Summary on 10-22-2024 Emergency Department Summary [facility] Medical Records Department [address] [place] [address] Emergency Department Summary 10/22/24 MR#: [id number] Acct: [id number] Name: MYRTLE RICE Rep #: [id number] : 2005 19 From: Christian Amaya MD PCP: Care Physician,No Primary Status:REG ER Location: ED HPI HPI - GI History of Present Illness Chief Complaint: Abd Pain Informant: patient and spouse/S.O. Narrative Narrative: 19-year-old female presenting with the third day of abdominal pain and vomiting. She states the abdominal pain started first and it was periumbilical, couple hours later she started having nausea and vomiting nonbilious nonbloody, she has been having normal bowel movements, normal urination, but states now the pain is moved to the right lower quadrant. She has had a poor appetite and p.o. intake, she has not had any fluids since last night but has been drinking fluids otherwise. No fevers or chills that she knows of. No known sick contacts. No history of any surgeries in her abdomen. She has irregular menstrual cycles, her last one was 1 or 2 months ago, she states that is not unusual for her, but given the symptoms they did a home test last night and it was negative. PFSH PFS Medical History no medical history no medical history Home Medications ???Medication ???Instructions ???Recorded ???Last Taken ???Type ciprofloxacin HCl 500 mg tablet 500 mg PO BID #14 TABLETS 10/22/24 Unknown Rx promethazine 25 mg tablet 25 mg PO Q6H PRN PRN Nausea #10 Unknown Rx TABLETS Allergy/AdvReac Type Severity Reaction Status Date / Time No Known Allergies Allergy Verified 10/22/24 08:25 Surgical History (Updated 10/22/24 @ 08:[address] Christian Amaya MD) H/O left knee surgery H/O adenoidectomy Hx of tonsillectomy Social History Smoking Status: Current every day smoker tobacco type: e-cigarettes ROS ROS ED Constitutional Constitutional ED: Reports anorexia; Denies chills or fever(s) Eyes Eyes: Denies change in vision or diplopia ENT ENT ED: Denies rhinorrhea or sore throat Cardiovascular Cardiovascular: Denies chest pain or palpitations Respiratory/Chest Respiratory/Chest: Denies cough or dyspnea Gastrointestinal Gastrointestinal: Reports abdominal pain, nausea and vomiting; Denies diarrhea or melena Genitourinary Genitourinary ED: Denies dysuria or hematuria Musculoskeletal Musculoskeletal: Denies back pain or neck pain Integumentary Denies abscess or rash Neurologic Neurologic: Denies headache(s), paresthesias or weakness Psychiatric Psychiatric: Denies anxiety or suicidal thoughts EXAM Physical Exam Const Vital Signs: 10/22/24 08:00 10/22/24 10:00 Temperature 98.1 F Temperature Source Oral Pulse Rate 97 77 Respiratory Rate 16 16 Blood Pressure 120/77 96/60 Blood Pressure Mean 91 72 Pulse Ox 99 97 Oxygen Delivery Method Room Air Room Air Positive well nourished and well developed General Appearance ED: well developed and NAD HEENT Reports moist mucous membranes normocephalic and atraumatic Eyes PERRL and EOMs intact bilaterally Neck full ROM and supple Resp normal respiratory effort and clear to auscultation bilaterally Cardio regular rate, regular rhythm and no murmurs GI non-distended GI Narrative: Tender throughout the right lower quadrant with the maximal area of tenderness being at McBurney's point. Positive Rovsing, negative obturator, positive psoas. No rebound tenderness. Auscultation: normoactive bowel sounds Palpation: soft Back/Spine no CVA tenderness General Back: other FROM Extremity normal to inspection General Extremety ED: Negative for edema, pulses abnormal or tenderness General Extremity: Negative for edema or pulses abnormal Neuro oriented x3, CN's II-XII intact bilaterally and no sensory deficits noted Sensorium / Orientation: awake and alert Motor Exam: strength 5/5 throughout Psych mental status grossly normal and thought process normal Skin no rashes or lesions noted and no wounds MDM MDM MDM Narrative Medical decision making narrative: The history and exam are concerning for acute appendicitis. Ectopic and mesenteric adenitis and other GI issues such as terminal ileitis or other functional problems are all in the differential, but at this time a , basic labs, and a CT are indicated. In the meantime she was treated with IV fluids, Zofran, Toradol, morphine. These medications really help the patient did well remained stable. Labs are noted fairly unremarkable, urine showing signs of infection, and the CT shows normal appendix, signs of cystitis and ureteritis on the right, which is likely explaining her pain in (more content not included)... Normal [facility] Eosinophil percentageOrdered By: Christian Amaya on 10-22-2024 Eosinophils/100 WBC (Bld) 0.6 % 0-5 [facility] Epithelial cells.squamous LM Ql (Urine sed)Ordered By: Christian Amaya on 10-22-2024 Epithelial cells.squamous LM.HPF (Urine sed) [#/Area] 10 /[HPF] 5-10 [facility] Erythrocyte distribution wid th (RBC) [Ratio]Ordered By: Christian Amaya on 10-22-2024 Erythrocyte distribution width (RBC) [Entitic vol] 39.8 fL 35.1-43.9 [facility] Erythrocyte distribution wid th ratioOrdered By: Christian Amaya on 10-22-2024 Erythrocyte distribution width (RBC) [Ratio] 12.7 % 11.6-14.6 [facility] Estimation of creatinine geraldine aranceOrdered By: Christian Amaya on 10-22-2024 Estimated Creatinine Clearance Calc 115.62 ml/min 50-250 [facility] GFR/1.73 sq M.predicted abbey g non-blacks MDRD (S/P/Bld) [Vol rate/Area]Ordered By: Christian Amaya on 10-22-2024 Estimated GFR (MDRD) Non-Af Amer 116 >60 [facility] Comment on above: mL/min/1.73m2 CKD-EP I Creatinine Equation (2020) Glucose Ql (U)Ordered By: Leslee Amaya on 10-22-2024 Urine Glucose (UA) Normal mg/dl Normal [facility] Hematocrit Auto (Bld) [Volum e fraction]Ordered By: Christian Amaya on 10-22-2024 Hematocrit (Bld) [Volume fraction] 41.1 % 37-47 [facility] Hemoglobin measurementOrdere d By: Christian Amaya on 10-22-2024 Hemoglobin (Bld) [Mass/Vol] 14.0 g/dL 12.0-15.0 [facility] Immature granulocytes/100 WB C Auto (Bld)Ordered By: Christian Amaya on 10-22-2024 Immature granulocytes/100 WBC (Bld) 0.400 % 0.0-0.9 [facility] Comment on above: IG% - Immature Granu locytes (promyelocytes, myelocytes and metamyelocytes) > 1% indicates that a LEFT SHIFT is Present. Ketones Test strip Ql (U)Ord ered By: Christian Amaya on 10-22-2024 Ketones Ql (U) Negative Negative [facility] Laboratory - Chemistry and C hemistry - challengeOrdered By: Christian Amaya on 10-22-2024 AST [Catalytic activity/Vol] 20 U/L <32 [facility] Lymphocytes Auto (Unsp spec) [#/Vol]Ordered By: Christian Amaya on 10-22-2024 Lymphocytes (Bld) [#/Vol] 1.47 10*3/uL 0.83-4.51 [facility] Lymphocytes/100 WBC Auto (Un sp spec)Ordered By: Christian Amaya on 10-22-2024 Lymphocytes/100 WBC (Bld) 16.2 % Low 19-41 [facility] MCV (mean corpuscular volume ) determinationOrdered By: Christian Amaya on 10-22-2024 MCV (RBC) [Entitic vol] 87.3 fL 81-99 [facility] Mean corpuscular hemoglobin (MCH) determinationOrdered By: Christian Amaya on 10-22-2024 MCH (RBC) [Entitic mass] 29.7 pg 27.0-32.0 [facility] Mean corpuscular hemoglobin concentration (MCHC) determinationOrdered By: Christian Amaya on 10-22-2024 MCHC (RBC) [Mass/Vol] 34.1 g/dL 32-36 [facility] Mean platelet volume determi nationOrdered By: Christian Amaya on 10-22-2024 Platelet mean volume (Bld) [Entitic vol] 8.9 fL 6.2-12.0 [facility] Microscopic analysis of urin e for red blood cells (RBC)Ordered By: Christian Amaya on 10-22-2024 Urine RBC 10-25 SEEN /hpf 0-5 [facility] Monocyte percentageOrdered B y: Christian Amaya on 10-22-2024 Monocytes/100 WBC (Bld) 7.4 % 0-10 [facility] Mucus LM Ql (Urine sed)Order ed By: Christian Amaya on 10-22-2024 Mucus Ql (Urine sed) 0 SEEN /hpf [facility] Neutrophil percentageOrdered By: Christian Amaya on 10-22-2024 Neutrophils/100 WBC (Bld) 75.3 % High 47-70 [facility] Nitrite Test strip Ql (U)Ord ered By: Christian Amaya on 10-22-2024 Nitrite Ql (U) Positive High Negative [facility] Nucleated red blood cell per centageOrdered By: Christian Amaya on 10-22-2024 Nucleated RBC/100 WBC (Bld) [Ratio] 0 % 0-5 [facility] Platelet countOrdered By: Leslee Amaya on 10-22-2024 Platelets (Bld) [#/Vol] 245 10*3/uL 150-450 [facility] Potassium (Unsp spec) [Mass/ Vol]Ordered By: Christian Amaya on 10-22-2024 Potassium [Moles/Vol] 3.7 mmol/L 3.3-5.1 [facility] ,Serum,hCG Quali.on 10-22-2024 HCG, SERUM QUAL Negative Normal [facility] Comment on above: Performed By: #### L 700.6800, L100.0100, L500.4050 #### [facility] [address] [place], [place], [id number] Protein Test strip Ql (U)Ord ered By: Christian Amaya on 10-22-2024 Protein Ql (U) TNP [facility] Comment on above: Test not performed Protein, Urine (Random)on Protein (U) [Mass/Vol] 73.7 mg/dL High 0.0-12.0 [facility] Comment on above: Performed By: #### L 400.0001, L501.1930 #### [facility] [address] [place], [place], [id number] RBC Auto (Bld) [#/Vol]Ordere d By: Christian Amaya on 10-22-2024 RBC (Bld) [#/Vol] 4.71 10*6/uL 4.2-5.4 [facility] Serum creatinine measurement (mass/volume)Ordered By: Christian Amaya on 10-22-2024 Creatinine [Mass/Vol] 0.75 mg/dL 0.70-1.20 [facility] Serum globulin measurementOr dered By: Christian Amaya on 10-22-2024 Globulin (S) [Mass/Vol] 3.6 g/dL 2.2-4.2 [facility] Serum glucose measurement (m ass/volume)Ordered By: Christian Amaya on 10-22-2024 Glucose [Mass/Vol] 98 mg/dL 70-99 [facility] Serum or plasma alanine clinton otransferase (ALT) measurementOrdered By: Christian Amaya on 10-22-2024 ALT [Catalytic activity/Vol] 31 U/L <35 [facility] Serum or plasma albumin prabhakar urement (mass/volume)Ordered By: Christian Amaya on 10-22-2024 Albumin [Mass/Vol] 4.3 g/dL 3.5-5.0 [facility] Serum or plasma albumin/glob ulin mass ratioOrdered By: Christian Amaya on 10-22-2024 Albumin/Globulin [Mass ratio] 1.2 {ratio} 0.9-2.4 [facility] Serum or plasma alkaline justin sphatase measurementOrdered By: Christian Amaya on 10-22-2024 ALP [Catalytic activity/Vol] 77 U/L 35-104 [facility] Serum or plasma calcium prabhakar urement (mass/volume)Ordered By: Christian Amaya on 10-22-2024 Calcium [Mass/Vol] 9.3 mg/dL 7.6-11.0 [facility] Serum or plasma urea nitroge n measurement (mass/volume)Ordered By: Christian Amaya on 10-22-2024 Urea nitrogen [Mass/Vol] 14 mg/dL 4-19 [facility] Sodium levelOrdered By: Munir Amaya on 10-22-2024 Sodium [Moles/Vol] 139 mmol/L 133-145 [facility] Total proteinOrdered By: Memo Amaya on 10-22-2024 Protein [Mass/Vol] 7.9 g/dL 5.9-8.4 [facility] Urinalysis, Completeon 10-22 BACTERIA 1+ /hpf Normal None Seen [facility] Comment on above: Order Comment: CLEAN CATCH Performed By: #### L 400.0001, L5 #### [facility] [address] [place], [address] EPI,SQUAMOUS 10-25 SEEN Normal 5-10 [facility] Comment on above: Order Comment: CLEAN CATCH Performed By: #### L 400.0001, L5 #### [facility] [address] [place], [address] RBC 10-25 SEEN Normal 0-5 [facility] Comment on above: Order Comment: CLEAN CATCH Performed By: #### L 400.0001, L501.0 #### [facility] [address] [place], [address] WBC >100 SEEN Normal 0-5 [facility] Comment on above: Order Comment: CLEAN CATCH Performed By: #### L 400.0001, L5.0 #### [facility] [address] [place], [address] Mucus Ql (Urine sed) 0 SEEN Normal [facility] Comment on above: Order Comment: CLEAN CATCH Performed By: #### L 400.0001, L501.0 #### [facility] [address] [place], [address] Urine blood detectionOrdered By: Christian Amaya on 10-22-2024 Urine Occult Blood 250 /ul High Negative [facility] Urine clarityOrdered By: Memo Amaya on 10-22-2024 Clarity (U) Cloudy Clear [facility] Urine color determinationOrd ered By: Christian Amaya on 10-22-2024 Color (U) Yellow Yellow [facility] Urine leukocyte esterase det ection by dipstickOrdered By: Christian Amaya on 10-22-2024 Leukocyte esterase Test strip Ql (U) 500 /ul High Negative [facility] Urine pHOrdered By: Christian Amaya on 10-22-2024 pH (U) 6.0 [pH] 5.0 - 8.0 [facility] Urine protein measurement (m ass/volume)Ordered By: Christian Amaya on 10-22-2024 Protein (U) [Mass/Vol] 73.7 mg/dL High 0.0-12.0 [facility] Urine sediment bacteria coun t by microscopy (number/high power field)Ordered By: Christian Amaya on 10-22-2024 Bacteria LM.HPF (Urine sed) [#/Area] 1 /[HPF] None Seen [facility] Urine specific gravity measu rementOrdered By: Christian Amaya on 10-22-2024 Specific gravity (U) [Rel density] 1.015 1.002-1.030 [facility] Urobilinogen Ql (U)Ordered B y: Christian Amaya on 10-22-2024 Urine Urobilinogen Normal mg/dl Normal [facility] White blood cell (WBC) count Ordered By: Christian Amaya on 10-22-2024 WBC (Bld) [#/Vol] 9.1 10*3/uL 4.4-11.0 [facility] White blood cell countOrdere d By: Christiandae Amaya on 10-22-2024 Urine WBC >100 SEEN /hpf 0-5 [facility] CBC W Auto Differential pane l (Bld)on 03-27-2024 Basophils (Bld) [#/Vol] 0.01 x10*3/uL Normal 0.00-0.10 [facility] Comment on above: Performed By: #### 5 7021-8 #### SONIA FOWLER ([id number]) [facility] ([facility]) [address] [place] [address]7724 Basophils/100 WBC (Bld) 0.2 % Normal 0.0-2.0 [facility] Comment on above: Performed By: #### 5 7021-8 #### SONIA FOWLER ([id number]) [facility] ([facility]) [address] [place] [address] 50949 Eosinophils (Bld) [#/Vol] 0.08 x10*3/uL Normal 0.00-0.70 [facility] Comment on above: Performed By: #### 5 7021-8 #### SONIA FOWLER ([id number]) [facility] ([facility]) [address] [place] [address] 34105 Eosinophils/100 WBC (Bld) 1.5 % Normal 0.0-6.0 [facility] Comment on above: Performed By: #### 5 7021-8 #### SONIA FOWLER ([id number]) [facility] ([facility]) [address] [place] [address] 36478 Erythrocyte distribution width (RBC) [Ratio] 12.4 % Normal 11.5-14.5 [facility] Comment on above: Performed By: #### 5 7021-8 #### SONIA FOWLER ([id number]) [facility] ([facility]) [address] [place] [address] 32079 Hematocrit (Bld) [Volume fraction] 43.7 % Normal 36.0-46.0 [facility] Comment on above: Performed By: #### 5 7021-8 #### SONIA FOWLER ([id number]) [facility] ([facility]) [address] [place] [address] 32335 Hemoglobin (Bld) [Mass/Vol] 14.1 g/dL Normal 12.0-16.0 [facility] Comment on above: Performed By: #### 5 7021-8 #### SONIA FOWLER ([id number]) [facility] ([facility]) [address] [place] [address] Immature granulocytes (Bld) [#/Vol] 0.01 x10*3/uL Normal 0.00-0.70 [facility] Comment on above: Performed By: #### 5 7021-8 #### SONIA FOWLER ([id number]) [facility] ([facility]) [address] [place], [place] [id number] Immature granulocytes/100 WBC (Bld) 0.2 % Normal 0.0-0.9 [facility] Comment on above: Result Comment: Chasity ture Granulocyte Count (IG) includes promyelocytes, myelocytes and metamyelocytes but does not include bands. Percent differential counts (%) should be interpreted in the context of the absolute cell counts (cells/UL). Performed By: #### 5 7021-8 #### SONIA FOWLER ([id number]) [facility] ([facility]) [address] [place] [address] 23810 Lymphocytes (Bld) [#/Vol] 2.03 x10*3/uL Normal 1.20-4.80 [facility] Comment on above: Performed By: #### 5 7021-8 #### SONIA FOWLER ([id number]) [facility] ([facility]) [address] [place] [address] 53747 Lymphocytes/100 WBC (Bld) 38.1 % Normal 13.0-44.0 [facility] Comment on above: Performed By: #### 5 7021-8 #### SONIA FOWLER ([id number]) [facility] ([facility]) [address] [place] [address] 89338 MCH (RBC) [Entitic mass] 29.3 pg Normal 26.0-34.0 [facility] Comment on above: Performed By: #### 5 7021-8 #### SONIA FOWLER ([id number]) [facility] ([facility]) [address] [place] [address] 65931 MCHC (RBC) [Mass/Vol] 32.3 g/dL Normal 32.0-36.0 [facility] Comment on above: Performed By: #### 5 7021-8 #### SONIA FOWLER ([id number]) [facility] ([facility]) [address] [place] [address] 12055 MCV (RBC) [Entitic vol] 91 fL Normal 80-100 [facility] Comment on above: Performed By: #### 5 7021-8 #### SONIA FOWLER ([id number]) [facility] ([facility]) [address] [place] [address] 17817 Monocytes (Bld) [#/Vol] 0.41 x10*3/uL Normal 0.10-1.00 [facility] Comment on above: Performed By: #### 5 7021-8 #### SONIA FOWLER ([id number]) [facility] ([facility]) [address] [place] [address] 50118 Monocytes/100 WBC (Bld) 7.7 % Normal 2.0-10.0 [facility] Comment on above: Performed By: #### 5 7021-8 #### SONIA FOWLER ([id number]) [facility] ([facility]) [address] [place] [address] 64605 Neutrophils (Bld) [#/Vol] 2.79 x10*3/uL Normal 1.20-7.70 [facility] Comment on above: Result Comment: Perc ent differential counts (%) should be interpreted in the context of the absolute cell counts (cells/uL). Performed By: #### 5 7021-8 #### SONIA FOWLER ([id number]) [facility] ([facility]) [address] [place] [address] 51355 Neutrophils/100 WBC (Bld) 52.3 % Normal 40.0-80.0 [facility] Comment on above: Performed By: #### 5 7021-8 #### SONIA FOWLER ([id number]) [facility] ([facility]) [address] [place] [address] 22142 Nucleated RBC/100 WBC (Bld) [Ratio] 0.0 /100 WBCs Normal 0.0-0.0 [facility] Comment on above: Performed By: #### 5 7021-8 #### SONIA FOWLER ([id number]) [facility] ([facility]) [address] [place] [address] 92117 Platelets (Bld) [#/Vol] 289 x10*3/uL Normal 150-450 [facility] Comment on above: Performed By: #### 5 7021-8 #### SONIA FOWLER ([id number]) [facility] ([facility]) [address] [place] [address] 63166 RBC (Bld) [#/Vol] 4.82 x10*6/uL Normal 4.00-5.20 [facility] Comment on above: Performed By: #### 5 7021-8 #### SONIA FOWLER ([id number]) [facility] ([facility]) [address] [place] [address] 09400 WBC (Bld) [#/Vol] 5.3 x10*3/uL Normal 4.4-11.3 [facility] Comment on above: Performed By: #### 5 7021-8 #### SONIA FOWLER ([id number]) [facility] ([facility]) [address] [place] [address] 07974 Comprehensive metabolic 2000 panelon 03-27-2024 Albumin BCP dye [Mass/Vol] 4.8 g/dL Normal 3.4-5.0 [facility] Comment on above: Performed By: #### 2 4323-8 #### SONIA FOWLER ([id number]) [facility] ([facility]) [address] [place] [address] 48039 ALP [Catalytic activity/Vol] 66 U/L Normal 33-110 [facility] Comment on above: Performed By: #### 2 4323-8 #### SONIA FOWLER ([id number]) [facility] ([facility]) [address] [place] [address] 66422 ALT With P-5'-P [Catalytic activity/Vol] 10 U/L Normal 7-45 [facility] Comment on above: Result Comment: Christine ents treated with Sulfasalazine may generate falsely decreased results for ALT. Performed By: #### 2 432-8 #### SONIA FOWLER ([id number]) [facility] ([facility]) [address] [place] [address] 89421 Anion gap [Moles/Vol] 11 mmol/L Normal 10-20 [facility] Comment on above: Performed By: #### 2 432-8 #### SONIA FOWLER ([id number]) [facility] ([facility]) [address] [place] [address] 91242 AST With P-5'-P [Catalytic activity/Vol] 12 U/L Normal 9-39 [facility] Comment on above: Performed By: #### 2 432-8 #### SONIA FOWLER ([id number]) [facility] ([facility]) [address] [place] [address] 61363 Bilirubin [Mass/Vol] 0.8 mg/dL Normal 0.0-1.2 [facility] Comment on above: Performed By: #### 2 4323-8 #### SONIA FOWLER ([id number]) [facility] ([facility]) [address] [place] [address] 97483 Calcium [Mass/Vol] 9.9 mg/dL Normal 8.6-10.[address] [facility] Comment on above: Performed By: #### 2 4322-8 #### SONIA FOWLER ([id number]) [facility] ([facility]) [address] [place] [address] Chloride [Moles/Vol] 107 mmol/L Normal 98-107 [facility] Comment on above: Performed By: #### 2 4323-8 #### SONIA FOWLER ([id number]) [facility] ([facility]) [address] [place] [address] CO2 [Moles/Vol] 28 mmol/L Normal 21-32 [facility] Comment on above: Performed By: #### 2 4323-8 #### SONIA FOWLER ([id number]) [facility] ([facility]) [address] [place] [address] 97984 Creatinine [Mass/Vol] 0.71 mg/dL Normal 0.50-1.05 [facility] Comment on above: Performed By: #### 2 4323-8 #### SONIA FOWLER ([id number]) [facility] ([facility]) [address] [place] [address] 64311 GFR/1.73 sq M.predicted MDRD (S/P/Bld) [Vol rate/Area] mL/min/{1.73_m2} Normal >60 [facility] Comment on above: Result Comment: Calc ulations of estimated GFR are performed using the 2020 CKD-EPI Study Refit equation without the race variable for the IDMS-Traceable creatinine methods. https://jasn.asnjournals.org/content//ASN.2020 455281 Performed By: #### 2 4323-8 #### SONIA FOWLER ([id number]) [facility] ([facility]) [facility] [place] [address] Glucose [Mass/Vol] 89 mg/dL Normal 74-[address] [facility] Comment on above: Performed By: #### 2 4323-8 #### SONIA FOWLER ([id number]) [facility] ([facility]) [facility] [place] [address] Potassium [Moles/Vol] 4.2 mmol/L Normal 3.5-5.3 [facility] Comment on above: Performed By: #### 2 4323-8 #### SONIA FOWLER ([id number]) [facility] ([facility]) [facility] [place] [address] Protein [Mass/Vol] 7.5 g/dL Normal 6.4-8.[address] [facility] Comment on above: Performed By: #### 2 4323-8 #### SONIA FOWLER ([id number]) [facility] ([facility]) [address] [place] [address] 45170 Sodium [Moles/Vol] 142 mmol/L Normal 136-[address] [facility] Comment on above: Performed By: #### 2 4323-8 #### SONIA FOWLER ([id number]) [facility] ([facility]) [address] [place] [address] 36431 Urea nitrogen [Mass/Vol] 15 mg/dL Normal 6-23 [facility] Comment on above: Performed By: #### 2 4323-8 #### SONIA FOWLER ([id number]) [facility] ([facility]) [address] [place] [address] 62380 Lipid 1996 panelon 4 Cholesterol [Mass/Vol] 160 mg/dL Normal 0-199 [facility] Comment on above: Result Comment: Age Desirable Borderline High High 0-19 Y 0 - 169 170 - 199 >/= 200 20-24 Y 0 - 189 190 - 224 >/= 225 >24 Y 0 - 199 200 - 239 >/= 240 All ranges are based on fasting samples. Specific therapeutic targets will vary based on patient-specific cardiac risk. Pediatric guidelines reference:Pediatrics 2011, 128(S5).Adult guidelines reference: NCEP ATPIII Guidelines,BETTY 2001, 258:2486-97 Venipuncture immediately after or during the administration of Metamizole may lead to falsely low results. Testing should be performed immediately prior to Metamizole dosing. Performed By: #### 2 4331-1 #### SONIA FOWLER ([id number]) [facility] ([facility]) [address] [place] [address] 69670 Cholesterol in HDL [Mass/Vol] 51.0 mg/dL Normal [facility] Comment on above: Result Comment: Age Very Low Low Normal High 0-19 Y < 35 < 40 40-45 ---- 20-24 Y ---- < 40 >45 ---- >24 Y ---- < 40 40-60 >60 Performed By: #### 2 4331-1 #### SONIA FOWLER ([id number]) [facility] ([facility]) [facility] [place] [address] Cholesterol in LDL [Mass/Vol] 97 mg/dL Normal <=109 [facility] Comment on above: Result Comment: Near Borderline AGE Desirable Optimal High High Very High 0-19 Y 0 - 109 --- 110-129 >/= 130 ---- 20-24 Y 0 - 119 --- 120-159 >/= 160 ---- >24 Y 0 - 99 100-129 130-159 160-189 >/=190 Performed By: #### 2 4331-1 #### SONIA FOWLER ([id number]) [facility] ([facility]) [address] [place] [address] Cholesterol in VLDL [Mass/Vol] 12 mg/dL Normal 0-40 [facility] Comment on above: Performed By: #### 2 4331-1 #### SONIA FOWLER ([id number]) [facility] ([facility]) [address] [place] [address]1662 CHOLESTEROL/HDL RATIO 3.1 Normal [facility] Comment on above: Result Comment: Ref Values Desirable < 3.4 High Risk > 5.0 Performed By: #### 2 4331-1 #### SONIA FOWLER ([id number]) [facility] ([facility]) [address] [place] [address]007 NON HDL CHOLESTEROL 109 mg/dL Normal 0-119 [facility] Comment on above: Result Comment: Age Desirable Borderline High High Very High 0-19 Y 0 - 119 120 - 144 >/= 145 >/= 160 20-24 Y 0 - 149 150 - 189 >/= 190 ---- >24 Y 30 mg/dL above LDL Cholesterol goal Performed By: #### 2 4331-1 #### SONIA FOWLER ([id number]) [facility] ([facility]) [facility] [place] [address] Triglyceride [Mass/Vol] 58 mg/dL Normal 0-149 [facility] Comment on above: Result Comment: Age Desirable Borderline High High Very High 0 D-90 D 19 - 174 ---- ---- ---- 91 D- 9 Y 0 - 74 75 - 99 >/= 100 ---- 10-19 Y 0 - 89 90 - 129 >/= 130 ---- 20-24 Y 0 - 114 115 - 149 >/= 150 ---- >24 Y 0 - 149 150 - 199 200- 499 >/= 500 Venipuncture immediately after or during the administration of Metamizole may lead to falsely low results. Testing should be performed immediately prior to Metamizole dosing. Performed By: #### 2 4331-1 #### SONIA FOWLER ([id number]) [facility] ([facility]) [address] [place] [address]40 M. tuberculosis stim IFN-g a nd spot count panel (Bld)on 03-27-2024 Gamma interferon negative control spot count (Bld) [#] Passed [facility] Comment on above: Performed By: #### 7 4281-7 #### QUEST CHANTL ([id number]) [address] [facility] [address] [place] M. tuberculosis stim IFN-g CFP10 Ag spot count (Bld) [#] [address] [facility] Comment on above: Performed By: #### 7 4281-7 #### QUEST CHANTL ([id number]) [address] [facility] [place] M. tuberculosis stim IFN-g ESAT-6 Ag spot count (Bld) [#] [address] [facility] Comment on above: Performed By: #### 7 4281-7 #### QUEST CHANTL ([id number]) [address] [facility] [place] M. tuberculosis stim IFN-g Ql (Bld) [Interp] Negative Normal Negative [facility] Comment on above: Result Comment: A negative test result does not exclude the possibility of exposure to or infection with Mycobacterium tuberculosis (M. tuberculosis). Patients with recent exposure to TB infected individuals exhibiting a negative T-SPOT.TB result should be considered for retesting within 6 weeks or if other relevant clinical symptoms indicate. Results from T-SPOT.TB testing must be used in conjunction with each individual's epidemiological history, current medical status, and results of other diagnostic evaluations. The T-SPOT.TB test is qualitative and results are reported as positive, borderline, or negative, given that the test controls perform as expected. In line with the Centers for Disease Control and Prevention's 2010 recommendation to report quantitative measurements alongside the qualitative result, the laboratory provides spot counts for informational purposes only. The T-SPOT.TB test should not be interpreted as a quantitative test. Performed By: #### 7 4281-7 #### MIHIR MATSON ([id number]) [address] [facility] [address] [place] Mitogen stimulated gamma interferon positive control spot count (Bld) [#] Passed Normal [facility] Comment on above: Result Comment: For additional information, please refer to http://education.[employer]/faq/RIO679 (This link is being provided for informational/ educational purposes only.) Performed By: #### 7 4281-7 #### MIHIR MATSON ([id number]) [address] [facility] [address] [place] MeV IgG IA Ql (S)on 03-27-20 24 RUBEOLA IGG ANTIBODY INDEX 1.5 IA High <=0.8 [facility] Comment on above: Order Comment: NEGAT CARIE: No IgG antibodies specific to Measles detected. It is likely that the patient has not had a previous exposure to Measles through infection or vaccination. Alternatively, the patient may have been exposed to Measles but a failure to respond may indicate immunodeficiency. EQUIVOCAL: Equivocal results; obtain additional sample for retesting. POSITIVE: IgG antibody to Measles detected. This may indicate that the patient was exposed to Measles through infection or vaccination.The interpretation of serological tests should take into account the immunological status of the patient. Test results for patients, including immunocompromised patients, neonates, and pediatric patients, reflect their capacity to respond immunologically to the virus as well as their exposure to the pathogen. Patients treated with IVIG may demonstrate altered results in serological assays. Performed By: #### 3 5275-7 #### CY Mtz ([id number]) [facility] ([facility]) [address] [place] [address]796 Measles virus Ab.IgGon 03-27 MeV IgG IA Ql (S) Positive Normal [facility] Comment on above: Order Comment: NEGAT CARIE: No IgG antibodies specific to Measles detected. It is likely that the patient has not had a previous exposure to Measles through infection or vaccination. Alternatively, the patient may have been exposed to Measles but a failure to respond may indicate immunodeficiency. EQUIVOCAL: Equivocal results; obtain additional sample for retesting. POSITIVE: IgG antibody to Measles detected. This may indicate that the patient was exposed to Measles through infection or vaccination.The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 center above. Personal Belongings: - Leave ALL valuables and money at home or with family members. For Outpatient Procedures: - YOU MUST HAVE A RESPONSIBLE DELPHI DEVELOPER TAKE YOU HOME. A SHOP TECH OR CUSTOM FURRIER CANNOT BE MADE A RESPONSIBLE DELPHI DEVELOPER. - We recommend that a responsible person stays with you overnight to take care of you. -Arrival Time for Surgery: [facility] will call with time of arrival. Typically it is two hours before your scheduled surgery. - The Surgery Center or hospital where you are having surgery will call the afternoon before surgery (or Sunday for Sunday surgery) with a scheduled arrival time. - If you have not heard by 4 pm, please contact the surgery center above. Please be aware that emergency situations arise, which may delay or change your surgical time. If this happens, we will notify you as soon as possible and regret any inconvenience. LAWRENCE Barnard M.D. [facility] Department of Orthopaedic Surgery and Sports [place] [address] David Seniro PA-C 08/19/2018 2:07 PM Signed surgery 08/27/18 per family. PACC at [place] patient has crutches and TROM Brace. Dad has full custody and will sign consent the [facility]. David Senior PA-C [facility] ED Physician Reporton 2017 ED Physician Report Patient: MYRTLE RICE Age: 12 years Sex: Female : 2005 Associated Diagnoses: None Author: NIEVES MERZA MD Basic Information Addendum: Time of addendum:: 11/30/2017 13:30:00 . His skull by pharmacy due to medication not being covered. Eyedrops were changed to azelastine, 1 drop twice a day. Jillian MERAZ MD 11/30/2017 13:31 [facility] ED Physician Report Patient: MYRTLE RICE Age: 12 years Sex: Female : 2005 Associated Diagnoses: Conjunctivitis Author: Ruben MCADAMS MD Basic Information Time seen: Date & time 11/30/2017 01:00:00. History source: Patient, father. Arrival mode: Private vehicle. History limitation: None. History of Present Illness The patient presents with an eye problem and Sutton about right eye began 2 hours ago while on a patio. The onset was 2 hours ago. The course/duration of symptoms is constant. Type of injury: none and No known exposure but has had similar symptoms before consistent with an ALLERGIC reaction. The location where the incident occurred was at home and On patio. Location: Right eye(s) eyelid neymar-orbital. The character of symptoms is redness, itching and Conjunctival and lid swelling. The degree of symptoms is minimal. The exacerbating factor is none. The relieving factor is none. Prior episodes: rare and allergies. Risk factors consist of none. Therapy today: none. Associated symptoms: foreign body sensation. Additional history: Corrective vision: glasses, no contact lenses. Review of Systems Constitutional symptoms: Negative except as documented in HPI. Skin symptoms: Negative except as documented in HPI, Swelling periorbital area. Eye symptoms: Conjunctival edema slight injection. ENMT symptoms: Negative except as documented in HPI. Respiratory symptoms: Negative except as documented in HPI. Cardiovascular symptoms: Negative except as documented in HPI. Gastrointestinal symptoms: Negative except as documented in HPI. Genitourinary symptoms: Negative except as documented in HPI. Musculoskeletal symptoms: Negative except as documented in HPI. Psychiatric symptoms: Negative except as documented in HPI. Endocrine symptoms: Negative except as documented in HPI. Hematologic/Lymphati c symptoms: Negative except as documented in HPI. Allergy/immunologic symptoms: Negative except as documented in HPI, Unknown ALLERGY. Neurologic symptoms Negative except as documented in HPI. Additional review of systems information: All other systems reviewed and otherwise negative. Health Status Allergies: No known allergies. Medications: (Selected) Documented MedicationsDocumente dVyvanse: 60 mg, ORAL, DAILY, 0 Refill(s)Zoloft: 50 mg, ORAL, DAILY, 0 Refill(s). Immunizations: Up to date. Menstrual history: Last menstrual period: Date 11/30/2017. Past Medical/ Family/ Social History Medical history: Attention deficit disorder depression. Surgical history: Adenoidectomy without Tonsillectomy (28.6).Tonsillectomy without Adenoidectomy (28.2).. Family history: Not significant. Social history: Alcohol use: Denies, Tobacco use: Denies, Drug use: Denies, Family/social situation: Intact family, school. Physical Examination Vital Signs Vital Signs 11/30/2017 0:26 EDT Temperature Oral 36.9 degC NORMAL Peripheral Pulse Rate 102 bpm HI Respiratory Rate 18 br/min NORMAL Systolic Blood Pressure 114 mmHg NORMAL Diastolic Blood Pressure 84 mmHg NORMAL SpO2 99 % NORMAL Oxygen Therapy Room air Height/Length Dosing 154.94 cm Weight Dosing 47.7 kg Body Mass Index Dosing 20 . General: Alert, mild distress, anxious. Skin: Warm, dry, pink, intact, Swelling around the eyelids and periorbital area right eye. Head: Normocephalic, atraumatic. Neck: Supple, trachea midline, no tenderness. Eye: Intact accommodation, extraocular movements are intact, Visual acuity: Right eye 20/ 40, left eye 20/ 50, both eyes 20/ 50, without correction, Method of inspection: Right eye, viewed with fluorescein, eyelid eversion done, Tetracaine applied, With Wood's lamp, Pupil: Both eyes, 4 mm, equal, reactivity brisk to direct light, Eyelids: Right, upper and lower, edematous, not with foreign body present, Conjunctiva: Right, with conjunctivitis, Cornea: Right, clear, No foreign body or abrasion. Ears, nose, mouth and throat: Tympanic membranes clear, oral mucosa moist, no pharyngeal erythema or exudate. Cardiovascular: Regular rate and rhythm, No murmur, Normal peripheral perfusion, No edema. Respiratory: Lungs are clear to auscultation, respirations are non-labored, breath sounds are equal. Chest wall: No tenderness, No deformity. Back: Normal range of motion, Normal alignment, no step-offs. Musculoskeletal: Normal ROM, normal strength, no tenderness, no swelling, no deformity. Gastrointestinal: Soft, Nontender. Psychiatric: Cooperative, normal judgment, non-suicidal, Depressed mood mildly anxious. Neurological Alert and oriented to person, place, time, and situation, No focal neurological deficit observed, CN II-XII intact, normal sensory observed, normal motor observed, normal speech observed, normal coordination observed. Medical Decision Making Differential Diagnosis: Conjunctivitis, ALLERGIC conjunctivitis. Documents reviewed: Emergency department nurses' notes. Reexamination/ Reevaluation Discussed with pharmacist best option for treatment is Pantanol topically not available here Impression and Plan Diagnosis Conjunctivitis (SPE19-AR H10.9, Working, Medical) ALLERGIC conjunctivitis right eye unclear etiology Plan Condition: Stable. Disposition: ED Discharge to Home was placed.(11/30/2017 01:41:49 EDT, Constant Order). Prescriptions: Launch prescriptions Pharmacy:[facility] 0.1% ophthalmic solution (Prescribe): 1 drops, Right Eye, BID, for 5 days, 5 mL, 0 Refill(s)Diphenhist 25 mg oral capsule (Prescribe): 25 mg = 1 caps, ORAL, QID, for 3 days, Use every 6 hours for edema around eye, 12 caps, 0 Refill(s). Patient was given the following educational materials: Allergic Conjunctivitis, [id number], Allergic Conjunctivitis, [id number]. Limitations: Limited activity. Follow up with: JOSE MARCELINO, NOT ON STAFF In 2 days 12/02/2017; JOSÉ MANUEL CINTRON, Ophthalmology In 1 day 12/01/2017. Counseled: Patient, Family, Regarding diagnosis, Regarding diagnostic results, Regarding treatment plan, Regarding prescription, Patient indicated understanding of instructions. PEMA COLLINS, O Yumiko 11/30/2017 05:00 Normal [facility] ED Progress Noteon 8 Thyroid stimulating hormone (TSH) PT INTO ED WITH RIGHT EYE SWELLING AND IRRITATION THAT HAPPENED HUMAN RESOURCES REPRESENTATIVE. PT WAS SITTING OUT ON PATIO,. CAME FROM GRANDPARENTS HOME. PT DENIES ANY ALLERGENS OR EXPOSURES, PT HAS RIGHT EYE SWELLING AND ITCHING. PT HAS ITCHING AND TROUBLE SEEING FROM EYE WELL TEARING. SHE DENIES EXPOSURE TO ANIMALS. VISULA ACUITY COMPLETED. DR MCADAMS IN TO EXAMINE RIGHT EYE. PT GIVEN BENADYL ORALLY WELL PREDNISONE. NO CORNEAL ABRASION ON EXAM. PT TO FOLLOW UP WITH OPTHOMOLOGY.DISCHARG E INSTRUCTIONS REVIEWED. SCRIPT X2. REFERRAL FOR OPTHOMOLOGY. Normal [facility] ED Physician Reporton 2016 ED Physician Report Patient: MYRTLE RICE Age: 12 years Sex: Female : 2005 Associated Diagnoses: Abrasion of sclera of right eye; Corneal abrasion, right Author: LAWANDA PANTOJA DO Basic Information Time seen: Date & time 03/11/2017 21:10:00. History source: Patient, mother. Arrival mode: Private vehicle. History limitation: None. History of Present Illness The patient presents with eye pain. The onset was just prior to arrival. Type of injury: Dog scratched with nail. The location where the incident occurred was at home. Location: Right eye(s). The character of symptoms is pain. The degree of symptoms is moderate. The exacerbating factor is opening eyes. Prior episodes: none. Risk factors consist of this eye that does wander a bit. Therapy today: none. Associated symptoms: none. This was the day patient's family dog and it does have all of its immunizations specifically the rabies. Review of Systems Constitutional symptoms: Negative except as documented in HPI. Eye symptoms: Negative except as documented in HPI. Neurologic symptoms Negative except as documented in HPI. Additional review of systems information: All other systems reviewed and otherwise negative. Health Status Allergies: No known allergies. Medications: Per nurse's notes. Immunizations: Up to date. Past Medical/ Family/ Social History Medical history: Reviewed as documented in chart. Surgical history: Reviewed as documented in chart. Social history: Reviewed as documented in chart, Family/social situation: Lives with parent(s). Physical Examination Vital Signs Vital Signs 03/11/2017 22:27 EDT Systolic Blood Pressure 103 mmHg NORMAL Diastolic Blood Pressure 72 mmHg NORMAL Respiratory Rate 18 br/min NORMAL Mean Arterial Pressure, Cuff 82 mmHg SpO2 100 % NORMAL Oxygen Therapy Room air Peripheral Pulse Rate 79 bpm NORMAL 03/11/2017 20:55 EDT Systolic Blood Pressure 114 mmHg NORMAL Diastolic Blood Pressure 72 mmHg NORMAL Temperature Oral 37.4 degC NORMAL Respiratory Rate 18 br/min NORMAL SpO2 100 % NORMAL SpO2 98 % NORMAL Oxygen Therapy Room air Peripheral Pulse Rate 98 bpm HI Height/Length Dosing 152.40 cm Weight Dosing 47.9 kg Body Mass Index Dosing 21 . General: Alert, mild distress, Eye pain. Skin: Warm, dry, intact. Head: Normocephalic. Neck: Supple. Eye: Pupils are equal, round and reactive to light, intact accommodation, extraocular movements are intact, , Eyelids: Right, normal, Cornea: Right, abrasions, Sclera: Right, Abrasion. Respiratory: Respirations are non-labored. Musculoskeletal: Normal ROM. Psychiatric: Cooperative, appropriate mood & affect, normal judgment. Neurological Alert and oriented to person, place, time, and situation, CN II-XII intact, normal motor observed, normal speech observed, normal coordination observed. Medical Decision Making Differential Diagnosis: Corneal abrasion, eye laceration. Rationale: There was no streaming from the abrasions in the patient's eye and no foreign body noted so laceration is not apparent.. Documents reviewed: Emergency department nurses' notes. Orders Launch Orders Pharmacy:[facility] 0.3% ophthalmic solution (Order): 1 drops, Left Eye, ONCE. Procedure Tetracaine 2 drops to the RIGHT eye floor seen strip to the RIGHT with UV light. Abrasions to the lateral side of sclerae and just a bit into the cornea were noted with no flowing. I was rinsed well with 15 mL of eyewash. 1st dose antibiotics that she since this was a scratch from a dog was placed with gentamicin solution patient tolerated this all very well. I distributed the rest of the antibiotic eyedrops myself with instructions written and verbally to the mother for use for the next 2 days empirically with detailed instructions on monitoring and need for re-emergent evaluation symptoms. Impression and Plan Diagnosis Abrasion of sclera of right eye ([id number]-BE S05.8X1A, Working, Medical) Corneal abrasion, right (ABI55-PU S05.01XA, Working, Medical) Plan Condition: Improved, Stable. Disposition: ED Discharge to Home was placed.(03/11/2017 22:18:39 EDT, Constant Order), Discharged: Time 03/11/2017 22:18:00, to home. Patient was given the following educational materials: Corneal Abrasion, Corneal Abrasion. Follow up with: JOSE MARCELINO Within 1 to 2 days Elevate head of bed to sleep; cool cloth across the eye for comfort do not rub the eye.Ibuprofen's package directs for painKeep out of sunlight or use sunglassesUse the gentamicin ophthalmic solution 2 drops 4 times a day while awake for 2 daysIf you see cloudy or green drainage, you need to have such eye checked as soon as possible.; ALBERTO LAWSON Within 3 to 5 days as an ophthalmology referral if needed. Counseled: Patient, Family, Regarding diagnosis, Regarding treatment plan, Patient indicated understanding of instructions. Normal [facility] Comment on above: Order Comment: Rona klein Attachment [id number] can be viewed in source system Result Comment: Diane CORADO DO 03/11/2017 22:41 ED Progress Noteon 7 aPTT PT TO ER WITH C/O RIGHT EYE PAIN. PT WAS SCRATCHED ON EYE BY PT DOG. PT IS HOLDING COOL RAG OVER EYE. PT EYE IS NORMALLY WEAK AND PT HAS DOUBLE VISION IN THAT EYE PER HER BASELINE. THIS IS NOT NEW. PT IS SEEING A DR FOR THIS ALREADY. PT EYE DOES NOT APPEAR TO BE RED AND NO VISIBLE INJURY TO EYE. PT FAMILY IS AT BEDSIDE. NO OTHER C/O AT THIS TIME.PT EYE TREATED WITH TETRACAINE AND FLOURICINE BY DR PANTOJA. PT TOLERATED WELL. PT HAS SCRATCH ON OUTER CORNER OF RIGHT EYE ON MOSTLY ON THE SCLERA. PT AWAITING FURTHER PLAN OF CARE.PT DISCHARGED FROM ER. PT SKIN WARM DRY AND PINK RESPIRATIONS EVEN AND UNLABORED. PT MOM STATED UNDERSTANDING OF DISCHARGE INSTRUCTION FOLLOWUP AND MEDICATION ORDERS. PT AMBULATED FROM ER ON FOOT WITH STEADY GAIT. PAIN IS MANAGED AT THIS TIME. Normal [facility] Vital Signs Date Time Vital Sign Value Performing Clinician Facility 10-22-2024 11:43-0400 Body temperature 97.7 [degF] Dr. Christian Amaya MD Work Phone: [facility] 10-22-2024 11:43-0400 Diastolic blood pressure 57 mm[Hg] Dr. Christian Amaya MD Work Phone: [facility] 10-22-2024 11:43-0400 Heart rate 78 /min Dr. Christian Amaya MD Work Phone: [phone] [place] [address] 10-22-2024 11:43-0400 Respiratory rate 16 /min Dr. Christian Amaya MD Work Phone: [phone] [place] [address] 10-22-2024 11:43-0400 SaO2% (BldA) [Mass fraction] 99 % Dr. Christian Amaya MD Work Phone: [phone] [place] [address] 10-22-2024 11:43-0400 Systolic blood pressure 93 mm[Hg] Dr. Christian Amaya MD Work Phone: [phone] [place] [address] 10-22-2024 08:00-0400 Body height 154.[address] Christian Amaya MD Work Phone: [phone] [place] [address] 10-22-2024 08:00-0400 Body mass index (BMI) [Ratio] 33.8 kg/m2 Dr. Christian Amaya MD Work Phone: [phone] [place] [address] 10-22-2024 08:00-0400 Body weight 81.[address] Christian Amaya MD Work Phone: [facility] 03-12-2024 07:54-0400 Body height 156.8 cm Parvin Vogel CREEL CLEANER-MEDICAL ENGINEER Work Phone: [facility] 03-12-2024 07:54-0400 Body mass index (BMI) [Ratio] 34.44 kg/m2 Parvin Vogel CREEL CLEANER-MEDICAL ENGINEER Work Phone: [facility] 03-12-2024 07:54-0400 Body weight 84.73 kg Parvin Vogel CREEL CLEANER-MEDICAL ENGINEER Work Phone: [facility] 03-12-2024 07:54-0400 Diastolic blood pressure 73 mm[Hg] Parvin Vogel CREEL CLEANER-MEDICAL ENGINEER Work Phone: [facility] 03-12-2024 07:54-0400 Heart rate 85 /min Parvin Vogel CREEL CLEANER-MEDICAL ENGINEER Work Phone: [facility] 03-12-2024 07:54-0400 Systolic blood pressure 107 mm[Hg] Parvin Jaspreet CREEL CLEANER-MEDICAL ENGINEER Work Phone: [facility] 10-17-2021 07:30-0400 Body temperature 99.5 [degF] Bialee Korduba PA-C Work Phone: [facility] 10-17-2021 07:30-0400 Body weight 56.7 kg Bailee Korduba PA-C Work Phone: [facility] 10-17-2021 07:30-0400 Diastolic blood pressure 68 mm[Hg] Bailee Korduba PA-C Work Phone: [facility] 10-17-2021 07:30-0400 Heart rate 93 /min Bailee Korduba PA-C Work Phone: [facility] 10-17-2021 07:30-0400 Respiratory rate 20 /min Bailee Korduba PA-C Work Phone: [facility] 10-17-2021 07:30-0400 SaO2% (BldA) [Mass fraction] 98 % Bailee Korduba PA-C Work Phone: [facility] 10-17-2021 07:30-0400 Systolic blood pressure 97 mm[Hg] Bailee Korduba PA-C Work Phone: [facility] Encounters Encounter Date Encounter Type Care Provider Facility Start: 10-22-2024 End: 10-22-2024 Emergency department patient visit Dr. Christian Amaya MD Work Phone: -Emergency Department Work Phone: Start: 03-27-2024 End: 03-27-2024 ambulatory [facility] Start: 03-12-2024 End: 03-12-2024 Office outpatient new 45 minutes Parvin Vogel CREEL CLEANER-MEDICAL ENGINEER Work Phone: [facility] Comment on above: Encounter for physic al examination related to employment (Primary Dx) Start: 03-12-2024 End: 03-12-2024 ambulatory [facility] Start: 10-17-2021 End: 10-17-2021 Patient encounter procedure Bailee Alvarado PA-C Work Phone: [facility] Comment on above: Flu-like symptoms (P rimary Dx); Fever, unspecified fever cause; Cough; Nausea and vomiting, unspecified vomiting type Start: 10-02-2021 Letter encounter Ronald tena MD Work Phone: [facility] Start: 02-15-2021 End: 02-18-2021 ambulatory UNKNOWN PROVIDER Facility:[facility] Start: 02-15-2021 End: 02-15-2021 Emergency department patient visit YULISSA Frausto LEMUS Facility:[facility] Start: 08-27-2018 End: 08-27-2018 Patient encounter procedure [facility] Start: 11-30-2017 End: 11-30-2017 Emergency department patient visit Ruben PANG INDIAN ORCHARD Facility:[id number] Start: 03-11-2017 End: 03-12-2017 Emergency department patient visit LAWANDA PANTOJA Facility:[id number] Start: 01-13-2017 Visual testing abnormal Fer Alfonso MD Work Phone: [facility] Procedures Date Procedure Procedure Detail Performing Clinician Start: 10-22-2024 Computed tomography of abdomen and pelvis with intravenous contrast Dr. Christian Amaya MD Work Phone: Start: 10-17-2021 STREP A MOLECULAR (POC) Bailee Alvarado PA-C Work Phone: Plan of Treatment Date Care Activity Detail Author Start: 12-31-2053 Zoster Vaccines (1 of 2) Zoste r Vaccines (1 of 2) [facility] Start: 12-22-2025 Tetanus,Diptheria,Pe rtus sis Vaccine (7 - Td or Tdap) Tetanus,Diptheria,Pertu ssis Vaccine (7 - Td or Tdap) [facility] Start: 09-11-2025 Well Child Visit (WC V) - Annual Well Child Visit (WCV) - Annual [facility] Start: 10-22-2024 Bacteria identified in Urine by Culture Urine Culture [facility] Start: 10-22-[address] [facility] Start: 10-22-[address] [facility] Start: 03-12-2024 End: 03-12-2025 CBC W Auto Differential panel - Blood CBC and Auto Differential Lab Routine Encounter for physical examination related to employment Expected: 03/12/2024 (Approximate), Expires: 03/12/2025 [facility] Work Phone: Comment on above: Expected: 03/12/2024 (Approximate), Expires: 03/12/2025 Start: 03-12-2024 End: 03-12-2025 Comprehensive metabolic 2000 panel - Serum or Plasma Comprehensive Metabolic Panel Lab Routine Encounter for physical examination related to employment Expected: 03/12/2024 (Approximate), Expires: 03/12/2025 [facility] Work Phone: Comment on above: Expected: 03/12/2024 (Approximate), Expires: 03/12/2025 Start: 03-12-2024 End: 03-12-2025 Lipid 1996 panel - Serum or Plasma Lipid Panel Lab Routine Encounter for physical examination related to employment Expected: 03/12/2024 (Approximate), Expires: 03/12/2025 [facility] Work Phone: Comment on above: Expected: 03/12/2024 (Approximate), Expires: 03/12/2025 Start: 03-12-2024 End: 03-12-2025 Measles virus IgG Ab [Presence] in Serum by Immunoassay Measles (Rubeola) Antibody, IgG Lab Routine Encounter for physical examination related to employment Expected: 03/12/2024 (Approximate), Expires: 03/12/2025 [facility] Work Phone: Comment on above: Expected: 03/12/2024 (Approximate), Expires: 03/12/2025 Start: 03-12-2024 End: 03-12-2025 Mumps virus IgG Ab [Units/volume] in Serum by Immunoassay Mumps Antibody, IgG Lab Routine Encounter for physical examination related to employment Expected: 03/12/2024 (Approximate), Expires: 03/12/2025 [facility] Work Phone: Comment on above: Expected: 03/12/2024 (Approximate), Expires: 03/12/2025 Start: 03-12-2024 End: 03-12-2025 Mycobacterium tuberculosis stimulated gamma interferon and spot count panel - Blood T-Spot TB Lab Routine Encounter for physical examination related to employment Expected: 03/12/2024 (Approximate), Expires: 03/12/2025 [facility] Service [facility] Work Phone: Comment on above: Expected: 03/12/2024 (Approximate), Expires: 03/12/2025 Start: 03-12-2024 End: 03-12-2025 Rubella virus IgG Ab [Units/volume] in Serum Rubella antibody, IgG Lab Routine Encounter for physical examination related to employment Expected: 03/12/2024 (Approximate), Expires: 03/12/2025 [facility] Work Phone: Comment on above: Expected: 03/12/2024 (Approximate), Expires: 03/12/2025 Start: 03-02-2024 COVID-19 Vaccine ( season) COVID-19 Vaccine ( season) [facility] Start: 03-02-2024 Influenza vaccination Influenza Vacc ine (#1) [facility] Start: 03-02-2022 Influenza vaccination INFLUENZ A (Season Ended) [facility] Start: 12-31-2021 Diabetes mellitus screening Diabetes Screening [facility] Start: 12-31-2021 Hepatitis C screening Hepatitis C [facility] Start: 06-13-2021 Vaccination for jemima n papillomavirus Human Papilloma (HPV) Vaccine (3 - 3-dose series) [facility] Start: 05-20-2021 COVID-19 Vaccine (3 - Booster for Pfizer series) COVID-19 Vaccine (3 - Booster for Pfizer series) [facility] Start: 01-30-2021 Influenza vaccination Influenza Vacc ine (#1) [facility] Start: 02-16-2020 Well child visit, 13 years WELL CLINICAL DATA COORDINATOR (3-17 YRS,YEARLY) [facility] Start: 2020 Meningococcal B (Bexsero,OMV) Vaccine (Optional,16-23 years) (#1) Meningococcal B (Bexsero,OMV) Vaccine (Optional,16-23 years) (#1) [facility] Start: 2020 MENINGOCOCCAL CONJUG ATE (1 - 2-dose series) MENINGOCOCCAL CONJUGATE (1 - 2-dose series) [facility] Start: 12-31-2018 CHLAMYDIA SCREENING (<18) CHLAMYDIA SCREENING (<18) [facility] Start: 12-31-2018 GC (GONORRHEA) SCREE STEPHEN (<18) GC (GONORRHEA) SCREENING (<18) [facility] Start: 12-31-2018 HIV screening HIV Test [facility] Start: 12-31-2018 HPV Vaccines (1 - 3- dose series) HPV Vaccines (1 - 3-dose series) [facility] Start: 12-31-2018 Screening for Chlamy vivian trachomatis STI Screening (Age 15-17) [facility] Start: 12-31-2017 PEDS TO ADULT TRANSI TION ANNUAL ASSESSMENT PEDS TO ADULT TRANSITION ANNUAL ASSESSMENT [facility] Start: 2016 Adult depression screening assessment DEPRESSION SCREENING [facility] Start: 2016 PEDS TO ADULT TRANSI TION INITIAL DISCUSSION PEDS TO ADULT TRANSITION INITIAL DISCUSSION [facility] Start: 12-31-2014 DTaP/Tdap/Td Vaccine s (6 - Tdap) DTaP/Tdap/Td Vaccines (6 - Tdap) [facility] Start: 12-31-2014 HPV VACCINE (1 - 2-d ose series) HPV VACCINE (1 - 2-dose series) [facility] Start: 12-31-2014 Urine microalbumin profile DTAP,TDAP,TD (6 - Tdap) [facility] Start: 12-31-2013 Lipid panel Lipid Screening [facility] Start: 12-31-2013 MENINGOCOCCAL B: Consider based on risk (1 of 2 - Risk Bexsero 2-dose series) MENINGOCOCCAL B: Consider based on risk (1 of 2 - Risk Bexsero 2-dose series) [facility] Start: 12-31-2009 Pneumococcal Vaccine : Pediatrics (0 to 5 Years) and At-Risk Patients (6 to 64 Years) (1 of 2 - PCV) Pneumococcal Vaccine: Pediatrics (0 to 5 Years) and At-Risk Patients (6 to 64 Years) (1 of 2 - PCV) [facility] Start: 2008 Hearing Screening (#1) Hearing Scree stephen (#1) [facility] Start: 2004 HIV screening HIV Screening [facility] Start: 2004 Lipid panel Lipid Panel [facility] COVID, FLU A/B + RSV , ROUTINE COVID, FLU A/B + RSV, ROUTINE Microbiology Routine Fever, unspecified fever cause Cough Ordered: 10/17/2021 [facility] Work Phone: Comment on above: Ordered: 10/17/2021 Patient Education ED Pyelonephri tis, Female (Adult) [facility] Work Phone: Patient referral [facility] Work Phone: ROUTINE FLU A/B + RSV ROUTINE FL U A/B + RSV Lab Routine Fever, unspecified fever cause Cough Ordered: 10/17/2021 [facility] Work Phone: Comment on above: Ordered: 10/17/2021 SARS-CoV-2 (COVID-19 ) RNA [Presence] in Respiratory specimen by OLGA with probe detection 2019 CORONAVIRUS Microbiology Routine Fever, unspecified fever cause Cough Ordered: 10/17/2021 [facility] Work Phone: Comment on above: Ordered: 10/17/2021 Urine culture [facility] Immunizations Immunization Date Immunization Notes Care Provider [facility] 02-11-2021 Human Papillomavirus 9-valent vaccine Ronald Alfonso MD Work Phone: [facility] 02-11-2021 meningococcal polysaccharide (groups A, C, Y and W-135) diphtheria toxoid conjugate vaccine (MCV4P) Ronald Alfonso MD Work Phone: [facility] 11-27-2020 Pfizer SARS-COV-2 (COVID-19) vaccine, age 12+ yrs, mRNA, spike protein, LNP, preservative free, 30 mcg/0.3mL dose (UPD=114) Ronald Alfonso MD Work Phone: [facility] 02-15-2019 Human Papillomavirus 9-valent vaccine Ronald Alfonso MD Work Phone: [facility] 04-27-2018 influenza, injectabl e, quadrivalent, preservative free Ronald Alfonso MD Work Phone: [facility] 04-27-2018 influenza virus vacc ine, unspecified formulation Ronald Alfonso MD Work Phone: [facility] 12-23-2015 meningococcal oligosaccharide (groups A, C, Y and W-135) diphtheria toxoid conjugate vaccine (MCV4O) Ronald Alfonso MD Work Phone: [facility] 12-23-2015 tetanus toxoid, redu aiden diphtheria toxoid, and acellular pertussis vaccine, adsorbed Ronald Alfonso MD Work Phone: [facility] Work Phone: 04-25-2011 hepatitis A vaccine, unspecified formulation Ronald Alfonso MD Work Phone: [facility] 04-18-2011 influenza virus vacc ine, live, attenuated, for intranasal use Ronald Alfonso MD Work Phone: [facility] 04-18-2011 influenza virus vacc ine, unspecified formulation [facility] Work Phone: [facility] Work Phone: 09-21-2008 Diphtheria, tetanus toxoids and acellular pertussis vaccine, and poliovirus vaccine, inactivated Ronald Alfonso MD Work Phone: [facility] 09-21-2008 measles, mumps and rubella virus vaccine Ronald Alfonso MD Work Phone: [facility] 09-21-2008 poliovirus vaccine, inactivated Bailee Alvarado PA-C Work Phone: [facility] 09-21-2008 varicella virus vaccine Sung Alfonso MD Work Phone: [facility] 01-08-2006 hepatitis A vaccine, unspecified formulation Ronald Alfonso MD Work Phone: [facility] 04-05-2005 diphtheria, tetanus toxoids and acellular pertussis vaccine Bailee Korduba PA-C Work Phone: [facility] 04-05-2005 diphtheria, tetanus toxoids and acellular pertussis vaccine, unspecified formulation Ronald Alfonso MD Work Phone: [facility] 04-05-2005 haemophilus influenz ae type b vaccine, conjugate unspecified formulation Ronald Alfonso MD Work Phone: [facility] 04-05-2005 pneumococcal conjuga te vaccine, 7 valent Bailee Korduba PA-C Work Phone: [facility] 04-05-2005 pneumococcal Conjuga te, unspecified formulation Ronald Alfonso MD Work Phone: [facility] 01-06-2005 measles, mumps and rubella virus vaccine Ronald Alfonso MD Work Phone: [facility] 01-06-2005 varicella virus vaccine Sung Alfonso MD Work Phone: [facility] 2004 diphtheria, tetanus toxoids and acellular pertussis vaccine Bailee Korduba PA-C Work Phone: [facility] 2004 diphtheria, tetanus toxoids and acellular pertussis vaccine, unspecified formulation Ronald Alfonso MD Work Phone: [facility] 2004 hepatitis B vaccine, pediatric or pediatric/adolescent dosage Bailee Korduba PA-C Work Phone: [facility] 2004 hepatitis B vaccine, unspecified formulation Ronald Alfonso MD Work Phone: [facility] 2004 pneumococcal conjuga te vaccine, 7 valent Bailee Korduba PA-C Work Phone: [facility] 2004 pneumococcal Conjuga te, unspecified formulation Ronald Alfonso MD Work Phone: [facility] 2004 poliovirus vaccine, inactivated Bailee Korduba PA-C Work Phone: [facility] 2004 poliovirus vaccine, unspecified formulation Ronald Alfonso MD Work Phone: [facility] 2004 diphtheria, tetanus toxoids and acellular pertussis vaccine Bailee Kirstieduba PA-C Work Phone: [facility] 2004 diphtheria, tetanus toxoids and acellular pertussis vaccine, unspecified formulation Ronald Alfonso MD Work Phone: [facility] 2004 haemophilus influenz ae type b vaccine, conjugate unspecified formulation Ronald Alfonso MD Work Phone: [facility] 2004 hepatitis B vaccine, pediatric or pediatric/adolescent dosage Bailee Korduba PA-C Work Phone: [facility] 2004 hepatitis B vaccine, unspecified formulation Ronald Alfonso MD Work Phone: [facility] 2004 pneumococcal conjuga te vaccine, 7 valent Bailee Kirstieduba PA-C Work Phone: [facility] 2004 pneumococcal Conjuga te, unspecified formulation Ronald Alfonso MD Work Phone: [facility] 2004 poliovirus vaccine, inactivated Bailee Korduba PA-C Work Phone: [facility] 2004 poliovirus vaccine, unspecified formulation Ronald Alfonso MD Work Phone: [facility] 2004 diphtheria, tetanus toxoids and acellular pertussis vaccine Bailee Kirstieduba PA-C Work Phone: [facility] 2004 diphtheria, tetanus toxoids and acellular pertussis vaccine, unspecified formulation Ronald Alfonso MD Work Phone: [facility] 2004 haemophilus influenz ae type b vaccine, conjugate unspecified formulation Rnoald Alfonso MD Work Phone: [facility] 2004 hepatitis B vaccine, pediatric or pediatric/adolescent dosage Bailee Korduba PA-C Work Phone: [facility] 2004 hepatitis B vaccine, unspecified formulation Ronald Alfonso MD Work Phone: [facility] 2004 pneumococcal conjuga te vaccine, 7 valent Bailee Korduba PA-C Work Phone: [facility] 2004 pneumococcal Conjuga te, unspecified formulation Ronald Alfonso MD Work Phone: [facility] 2004 poliovirus vaccine, inactivated Bailee Korduba PA-C Work Phone: [facility] 2004 poliovirus vaccine, unspecified formulation Ronald Alfonso MD Work Phone: [facility] Payers Date Payer Category Payer Self-pay 2023 Medicaid [id number] 2016 Medicaid [id number] 2016 Medicaid [id number] 2010 Medicaid [employer] [facility] [id number] 2010-Present [phone] [address] [place] [address] Medicaid [id number] 2004 Unknown [id number] 2004 Unknown [id number] 1973 Unknown [id number] 1973 Unknown [id number] Unknown [id number] Social History Date Type Detail Facility Start: 12-23-2015 End: 07-24-2018 Tobacco smoking status NHIS Never smoked tobacco [facility] Start: 12-23-2015 End: 03-12-2024 Tobacco use and exposure Smokeless tobacco non-user [facility] Start: 07-26-2020 End: 10-17-2021 Alcohol intake Current non-drinker of [facility] (finding) [facility] Start: [facility] Sex Assigned At [facility] on [facility] Start: 10-23-2011 Tobacco Comment Parents smoke outside of home mat gm [facility] Start: 10-07-2021 End: 03-12-2024 Exposure to SARS-CoV-2 (event) Not sure [facility] Start: 03-12-2024 End: 10-22-2024 Tobacco smoking status NHIS Smokes tobacco daily [facility] Work Phone: Start: 03-12-2024 Alcoholic beverage intake Current drinker of alcohol (finding) [facility] Work Phone: Gender identity Not on file [facility] Work Phone: Start: 10-22-2024 Sex Female (finding) [facility] Start: 2004 Sex Assigned At Female W [facility] Medical Equipment Procedure Code Equipment Code Equipment Origin al Text Equipment Identifier Dates Graft Semitendin osus Tendon [id number] Soft Tissue Allograft Frozen - [id number] Start: 08-27-2018 Comment on above: Description: SEMITENDINOSUS TENDON Bio-Compression Screw [id number] St art: 08-27-2018 Dart Chondral Da rt 1.3mm Poly L Lactic Acid 18mm Fixation Sterile - [id number] Start: 08-27-2018 Comment on above: Description: CHONDRAL DART Biocomposite Interference Screw [id number] Start: 08-27-2018 Comment on above: Description: FASTTHREAD BIOCOMPOSITE INT ERFERENCE SCREW Device Dx Swivel ock Sl 3.5mm 8.5mm Fixation Fork Eyelet Sterile - [id number] Start: 08-27-2018 Comment on above: Description: DX BOBO Clinical Notes 10-25-2011 to 10-22-2024 Parvin Vogel APRN-MEDICAL ENGINEER - 03/12/2024 8:10 AM EDTPatient InstructionsBailee Alvarado PA-C - 10/17/2021 7:46 AM EDT Note Date & Type Note Facility 10-22-[address] [facility] 10-22-2024 Radiology Diagnostic study note [facility] Services [address] [place] [address] Abdomen/Pelvis W IV Cont ONLY MR#: [id number] Acct: [id number] Name: MYRTLE RICE Rep #: [id number] : 2005 F 19 From: Lucy Burt MD PCP: Care Physician,No Primary Status: REG ER Study:Abdomen/Pelvis W IV Cont ONLY Date of E xam: 10/22/24 Exam# [id number] Ordering Dr: Alana Amaya MD PROCEDURE: ABDOMEN/PELVIS W IV CONT ONLY 10/22/2024 REASON FOR EXAM: RLQ PAIN TECHNIQUE: Abdomen and pelvis CT with intravenous contrast. Coronal and Sagittal reconstruction series were provided. PATIENT PREPARATION: Per protocol ORAL CONTRAST TYPE: None. CONTRAST: Isovue 370 VOLUME: 100 mL One or more dose reduction techniques were used (e.g., Automated exposure control, adjustment of the mA and/or kV according to patient size, use of iterative reconstruction technique. RADIATION DOSE SUMMARY: CTDlvol: 30 mGy DLP: 1200 mGycm COMPARISON: None FINDINGS: Lung bases: The lung bases are clear. The heart is normal in size. Liver: The liver is normal in size without focal hepatic mass. The major portalveins are patent. No biliary ductal dilation. Gallbladder: No radiopaque stones within the gallbladder. Spleen: Normal size. Pancreas: Unremarkable. Adrenals: No adrenal mass. Kidneys: No nephrolithiasis. Hyperenhancement of the right renal collecting system and ureter. Bladder: Minimally distended with diffuse bladder wall thickening and enhancement. Reproductive Organs: The uterus is unremarkable. Right corpus luteum. Bowel: The bowel loops are normal in caliber. No ascites or pneumoperitoneum. Normal appendix. Lymph nodes: No suspicious lymphadenopathy. Vasculature: The abdominal aorta and IVC are normal. Bones: Mild leftward curvature of the lumbar spine. No aggressive osseous lesions. CT/Abdomen/Pelvis W IV Cont ONLY IMPRESSION: Thickening and hyperenhancement of the right renal collecting system, ureter andbladder, compatible with cystitis and right ureteritis. No renal abscess visualized. Reading Location: [id number] CC: Dr. Christian Amaya MD; No Primary Care Physician ~ Carton Marker Machine: Signed [facility] 03-12-2024 History of Present illness Narrative Subjective Patient ID: Myrtle Rice is a 19 y.o. female who presents for Establish Care and Employment Physical. HPI Here today for a new patient and work physical. Denies any acute concerns. She was treated for ADHD as a child, stopped in 2019 and reports she does think she needs the medication. She reports she cannot stay on task especially for important things and at work. Obesity Counseling 15 - 20 minutes were spent counseling on diet and exercise interventions to address obesity and weight reduction. I strongly advised Myrtle Rice to consider vaping cessation. I offered support and advice on techniques to help with cessation. Review of Systems Constitutional: Negative for chills, fatigue and fever. Respiratory: Negative for cough and shortness of breath. Cardiovascular: Negative for chest pain, palpitations and leg swelling. Gastrointestinal: Negative for abdominal pain, constipation, diarrhea, nausea and vomiting. Genitourinary: Negative for dysuria. Neurological: Negative for dizziness, weakness, light-headedness and headaches. Objective BP 107/73 (Patient Position: Sitting) Pulse 85 Ht 1.568 m (5' 1.75) Wt 84.7 kg (186 lb 12.8 oz) BMI 34.44 kg/m Physical Exam Cardiovascular: Rate and Rhythm: Normal rate and regular rhythm. Heart sounds: Normal heart sounds. Pulmonary: Breath sounds: Normal breath sounds. Abdominal: General: Bowel sounds are normal. Skin: Capillary Refill: Capillary refill takes less than 2 seconds. Neurological: General: No focal deficit present. Mental Status: She is alert and oriented to person, place, and time. Assessment/Plan Problem List Items Addressed This Visit None Visit Diagnoses Codes Encounter for physical examination related to employment - Primary Z02.89 Relevant Orders T-Spot TB Mumps Antibody, IgG Measles (Rubeola) Antibody, IgG Rubella antibody, IgG Comprehensive Metabolic Panel Lipid Panel CBC and Auto Differential Employment physical -Lab work ordered -Will follow results -Needs to obtain Tdap vaccine from occupational health ADHD -She will provide her original testing that was done by [facility] -Then schedule an apt to resume testing once information is obtained documented in this encounter [facility] Work Phone: 10-17-2021 Note HNO ID: [id number] Author: Bailee Alvarado PA-C Service: ? Author Type: Physician Real Estate Branch Manager Type: Progress Notes Filed: 10/17/2021 7:59 AM Note Text: VANITA Rice is a 16 year old female who presents with 3 days of symptoms that are stable. Symptoms include: Fever (?100.4F): Yes or Chills: No Cough: Yes Shortness of breath: No or Difficulty breathing: No Fatigue: No Muscle aches: Yes Headache: No New loss of smell or taste: No Sore throat: Yes Nasal congestion: Yes or Rhinorrhea: No Nausea: Yes or Vomiting: Yes Diarrhea: No Signs of dehydration (low fluid intake or voiding, dry mucus membranes): No Decreased level of consciousness: No PAST MEDICAL HISTORY Diagnosis Date - Attention deficit hyperactivity disorder - Constipation 07/07/08 miralax - Dermatitis 07/07/08 contact-back buttock, rx cutivate cream, orapred - Pneumonia and influenza had xray last pm at [facility] - Pruritus of skin 07/22/08 resolving dermatitis-rx hydroxeine 4 ml q6h - Recurrent UTI - RSV (respiratory syncytial virus pneumonia) 07/14/08 RSV +, pneumonia/bronchiolitis ? pertussis, admitted - Vesicoureteral reflux 2006 PAST SURGICAL HISTORY Procedure Laterality Date - ADENOIDECTOMY HX - TONSILLECTOMY HX 2014 had bleeding post op, readmitted ALLERGIES Patient has no known allergies. MEDICATIONS ondansetron orally disintegrating (ZOFRAN ODT) 4 mg disintegrating tablet Take 1 tablet by mouth every 8 hours as needed for nausea/vomiting. ondansetron (ZOFRAN) 4 mg tablet Take 1 tablet by mouth three times daily as needed for Nausea/Vomiting. dextroamphetamine-amphetamine (ADDERALL) 20 mg tablet Take 20 mg by mouth once daily. lisdexamfetamine dimesylate (VYVANSE ORAL) Take 50 mg by mouth once daily. FAMILY HISTORY Problem Relation Age of Onset - Diabetes Father not sure if on insulin - other (Sleep Apnea) Father - Stroke Maternal Grandfather 2010 age 58 yrs - Aneurysm Maternal Grandfather 08/12 - other (Restless Leg) Mother mom only child - other (Other) Other mom doesn't know about dad's side Social History Tobacco Use - Smoking status: Never Smoker - Smokeless tobacco: Never Used - Tobacco comment: Parents smoke outside of home mat gm Substance Use Topics - Alcohol use: No - Drug use: No She reports that she has never smoked. She has never used smokeless tobacco. OBJECTIVE BP 97/68 Pulse 93 Temp 37.5 ?C (99.5 ?F) (Tympanic) Resp 20 Wt 56.7 kg (125 lb) LMP 10/10/2021 (Approximate) SpO2 98% GENERAL: well appearing, alert, in no acute distress HEENT: no conjunctival injection, pupils equal, moist mucous membranes, oropharynx clear without erythema and TMs clear bilaterally PULMONARY: breathing comfortably on room air , no coughing noted, no wheezing noted and lungs CTA bilaterally Heart: RRR. No murmur ABD: Soft, BS normal. No tenderness ASSESSMENT/PLAN ASSESSMENT/PLAN: 1. Flu-like symptoms - ICD9: 780.99, ICD10: R68.89 (primary diagnosis) 2. Fever, unspecified fever cause - ICD9: 780.60, ICD10: R50.9 Alere strep test negative Symptomatic treatement - COVID, FLU A/B + RSV, ROUTINE - 2019 CORONAVIRUS - ROUTINE FLU A/B + RSV 3. Cough - ICD9: 786.2, ICD10: R05.9 - COVID, FLU A/B + RSV, ROUTINE - 2019 CORONAVIRUS - ROUTINE FLU A/B + RSV 4. Nausea and vomiting, unspecified vomiting type - ICD9: 787.01, ICD10: R11.2 Tylenol/Motrin for fever Clear liquids. Zofran prescribed for nausea vomiting. Advance diet as tolerated If unable to tolerate clear liquids, return or go to ED No signs or symptoms of dehydration Abdominal exam normal. Vies if abdominal pain or worsening symptoms to return or go to ED Bailee Alvarado PA-C - Meets symptom-based criteria for testing and is low risk. - COVID swab collected at time of office visit - Instructed to isolate pending test results - Discussed symptom monitoring and supportive care - Red flag symptoms requiring follow up discussed This patient encounter involved the screening or treatment of novel coronavirus infection (COVID-19). [facility] 10-17-2021 Instructions Bailee Alvarado PA-C - 10/17/2021 7:50 AM EDT [facility] PATIENT INFO INFLUENZA INTRODUCTION Influenza (commonly called the flu) is a highly contagious illness that can occur in children or adults of any age. It occurs more often in the winter months because people spend more time in close contact with one another. The flu is spread easily from vivxan-ma-kxxsxs by coughing, sneezing, or touching surfaces. Every year, complications of the flu require more than 200,000 people in the [place] to be hospitalized. Serious illness is more likely in the very young, older adults, women, and people who have certain health problems such as asthma or other forms of lung disease. There have been several widespread flu outbreaks (called pandemics), which led to the deaths of many people worldwide. These outbreaks occurred when new strains of influenza viruses formed (often from pigs or birds) and humans became infected because they had no immunity to these viruses. FLU SYMPTOMS Symptoms of seasonal flu can vary from person to person, but usually include: Fever (temperature higher than 100 F or 37.8 C) Headache and muscle aches Fatigue Cough and sore throat may also be present People with the flu usually have a fever for two to five days. This is different than fever caused by other upper respiratory viruses, which usually resolve after 24 to 48 hours. Some people have cold-like symptoms (runny nose, sore throat) during the flu while others have fever and muscle aches. Flu symptoms usually improve over two to five days, although the illness may last for a week or more. Weakness and fatigue may persist for several weeks Flu complications Complications of influenza occur in some people; pneumonia is the most common complication. Pneumonia is a serious infection of the lungs, and is more likely to occur in people over the age of 65, people who live in fdc care facilities (nursing homes), and those with other illnesses such as diabetes or conditions affecting the heart or lungs. FLU DIAGNOSIS Influenza is usually diagnosed based on symptoms (fever, cough and muscle aches). Lab testing for influenza is performed in certain cases, such as during a new influenza outbreak in a community. FLU TREATMENT When to seek help Most people with the flu recover within one to two weeks without treatment. However, serious complications of the flu can occur. Call your doctor or nurse immediately if: You feel short of breath or have trouble breathing You have pain or pressure in your chest or stomach You have signs of being dehydrated, such as dizziness when standing or not passing urine You feel confused You cannot stop vomiting or you cannot drink enough fluids There are several groups of people who are at increased risk for flu complications. These include women, young children (<5 years of age, and especially <2 years of age), people ?65 years of age, and people with certain diseases such as chronic lung disease (such as asthma), heart disease, diabetes, immunosuppressing conditions (such as HIV infection or transplantation), and some other diseases. If you or your child has flu symptoms and is at increased risk of flu complications, you should call your healthcare provider. Treat symptoms Treating the symptoms of influenza can help you to feel better, but will not make the flu go away faster. Rest until the flu is fully resolved, especially if the illness has been severe Fluids Drink enough fluids so that you do not become dehydrated. One way to child care supervisor if you are drinking enough is to look at the color of your urine. Normally, urine should be light yellow to nearly colorless. If you are drinking enough, you should pass urine every three to five hours. Acetaminophen (such as Tylenol and other brands) can relieve fever, headache, and muscle aches. Aspirin, and medicines that include aspirin (eg, bismuth subsalicylate; PeptoBismol), are not recommended for children under 18 because aspirin can lead to a serious disease called Terry syndrome. Cough medicines are not usually helpful; cough usually resolves without treatment. We do not recommend cough or cold medicine for children under age six years. Antiviral treatment Antiviral medicines can be used to treat or prevent influenza. When used as a treatment, the medicine does not eliminate flu symptoms, although it can reduce the severity and duration of symptoms by about one day. Not every person with influenza needs an antiviral medicine; the decision is based upon your risk of developing complications of influenza. Antiviral treatment is most effective for seasonal influenza when it is taken within the first 48 hours of flu symptoms. Side effects Zanamivir and oseltamivir can cause mild side effects, including nausea and vomiting; zanamivir, which is inhaled, can cause difficulty breathing in some cases. Most people are able to continue the medicine despite the side effects. Antibiotics Antibiotics are NOT useful for treating viral illnesses such as influenza. Antibiotics should only used if there is a bacterial complication of the flu such as bacterial pneumonia, ear infection, or sinusitis. Antibiotics can cause side effects and lead to development of antibiotic resistance. documented in this encounter [facility] 10-17-2021 History of Present illness Narrative SUBJECTIVE Myrtle Rice is a 16 year old female who presents with 3 days of symptoms that are stable. Symptoms include: Fever (?100.4F): Yes or Chills: No Cough: Yes Shortness of breath: No or Difficulty breathing: No Fatigue: No Muscle aches: Yes Headache: No New loss of smell or taste: No Sore throat: Yes Nasal congestion: Yes or Rhinorrhea: No Nausea: Yes or Vomiting: Yes Diarrhea: No Signs of dehydration (low fluid intake or voiding, dry mucus membranes): No Decreased level of consciousness: No PAST MEDICAL HISTORY Diagnosis Date Attention deficit hyperactivity disorder Constipation 07/07/08 miralax Dermatitis 07/07/08 contact-back buttock, rx cutivate cream, orapred Pneumonia and influenza had xray last pm at [facility] Pruritus of skin 07/22/08 resolving dermatitis-rx hydroxeine 4 ml q6h Recurrent UTI RSV (respiratory syncytial virus pneumonia) 07/14/08 RSV +, pneumonia/bronchiolitis ? pertussis, admitted Vesicoureteral reflux 2006 PAST SURGICAL HISTORY Procedure Laterality Date ADENOIDECTOMY HX TONSILLECTOMY HX 2014 had bleeding post op, readmitted ALLERGIES Patient has no known allergies. MEDICATIONS ondansetron orally disintegrating (ZOFRAN ODT) 4 mg disintegrating tablet Take 1 tablet by mouth every 8 hours as needed for nausea/vomiting. ondansetron (ZOFRAN) 4 mg tablet Take 1 tablet by mouth three times daily as needed for Nausea/Vomiting. dextroamphetamine-amphetamine (ADDERALL) 20 mg tablet Take 20 mg by mouth once daily. lisdexamfetamine dimesylate (VYVANSE ORAL) Take 50 mg by mouth once daily. FAMILY HISTORY Problem Relation Age of Onset Diabetes Father not sure if on insulin other (Sleep Apnea) Father Stroke Maternal Grandfather 2010 age 58 yrs Aneurysm Maternal Grandfather 08/12 other (Restless Leg) Mother mom only child other (Other) Other mom doesn't know about dad's side Social History Tobacco Use Smoking status: Never Smoker Smokeless tobacco: Never Used Tobacco comment: Parents smoke outside of home mat gm Substance Use Topics Alcohol use: No Drug use: No She reports that she has never smoked. She has never used smokeless tobacco. OBJECTIVE BP 97/68 Pulse 93 Temp 37.5 C (99.5 F) (Tympanic) Resp 20 Wt 56.7 kg (125 lb) LMP 10/10/2021 (Approximate) SpO2 98%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
[2025-06-27 12:20] VITALS: BP 132/81; PULSE 98; RESP 16; TEMP 36.8; O2SAT 99
[2025-06-27] MEDS: Smz/Tmp Ds Tablet 1 TABLET PO (12:22)
== END 2025-06-27 12:28 | disposition home or self-care (01) ==
PROVIDERS: Emergency Provider Emergency Medicine; Visit Provider Emergency Medicine
DX: R10.9 Unspecified abdominal pain (principal); R11.2 Nausea with vomiting, unspecified; F17.290 Nicotine dependence, other tobacco product, uncomplicated; N92.6 Irregular menstruation, unspecified
CPT/HCPCS: 80053; 81001; 84703; 85025; 87086; 87088; 99284; A4216